=== PATIENT | female | born 1965 | race Caucasian/White ===

== ENCOUNTER → 2021-02-17 11:11 | Outpatient (CLI) | payer OTHER, SELFPAY | PROVIDERS: PCP Internal Medicine; Visit Provider Internal Medicine | DX: Z20.822 Contact with and (suspected) exposure to COVID-19 (principal) | CPT/HCPCS: U0003 ==

== ENCOUNTER → 2023-01-18 11:12 | Outpatient (CLI) | payer OTHER, SELFPAY ==
--- NOTE | 2023-01-18 11:17 | XR_ITS ---
FINAL REPORT CLINICAL HISTORY: Rt LBP x yrs, occasional numbness/tingling radiating down Rt leg. NKT. FINDINGS: LUMBAR SPINE, 5 views FINDINGS: No fracture is identified. Moderate disc space dome with mild endplate spurring is seen at L5-S1. Remaining disc heights are well-maintained. Minimal spurring is noted at L4. Alignment is normal . IMPRESSION: Moderate degenerative disc disease L5-S1 Authenticated and ERN
== END ==
PROVIDERS: PCP Internal Medicine; Visit Provider Internal Medicine
DX: M54.50 Low back pain, unspecified (principal)
CPT/HCPCS: 72110

== ENCOUNTER → 2023-04-22 17:09 | Outpatient (CLI) | payer OTHER, SELFPAY ==
[2023-04-22 17:51] LABS: Basophils # 0.1 K/mm3 (0-0.2); Basophils % 0.9 % (0.1-2.0); Eosinophils # 0.2 K/mm3 (0.0-0.4); Eosinophils % 2.6 % (0.1-12.0); Hematocrit 44.6 % (37.0-47.0); Hemoglobin 14.2 g/dL (12.2-16.2); Lymphocytes # 2.1 K/mm3 (0.7-4.5); Mean Corpuscular HGB Conc 31.9 g/dL (31.8-35.4); Mean Corpuscular Hemoglobin 26.3 pg (27.0-31.2); Mean Corpuscular Volume 82.4 fl (81-99); Mean Platelet Volume 8.7 fl (7.4-10.4); Monocytes # 0.7 K/mm3 (0.1-1.0); Monocytes % 7.9 % (1.7-9.3); Neutrophils # 6.2 K/mm3 (1.8-7.8); Neutrophils % 66.6 % (37.0-80.0); Platelet Count 433 K/mm3 (142-424); Red Blood Count 5.41 M/mm3 (4.20-5.40); Red Cell Distribution Width 13.9 % (11.5-17.5); White Blood Count 9.4 K/mm3 (4.8-10.8)
[2023-04-22 18:06] LABS: Alanine Aminotransferase 35 U/L (12-78); Albumin Level 4.7 g/dl (3.5-5.0); Albumin/Globulin Ratio 1.3 (1.1-1.8); Alkaline Phosphatase 121 U/L (38-126); Anion Gap 15.6 mEq/L (5-15); Aspartate Amino Transferase 32 U/L (14-36); Bilirubin,Total 0.3 mg/dl (0.2-1.3); Blood Urea Nitrogen 19 mg/dl (7-17); Carbon Dioxide 25 mmol/L (22.0-30.0); Chloride 103 mmol/L (98-107); Chol/HDL Ratio 8.5 (1-3.5); Cholesterol 246 mg/dl (140-200); Estimated Glomerular Filt Rate 74 ml/min (>60); GFR (African American) 90 ML/MIN (>60); Globulin 3.6 g/dL (1.3-3.2); Glucose 80 mg/dl (74-100); HDL Cholesterol 29 mg/dl (40-60); Potassium 4.6 mmoL/L (3.5-5.1); Sodium 139 mmol/L (136-145); Total Protein,Serum 8.3 g/dl (6.3-8.2)
[2023-04-22 18:15] LABS: Triglycerides 401 mg/dl (30-150)
[2023-04-22 18:17] LABS: Direct LDL Cholesterol 128.54 mg/dL (100-129)
[2023-04-22 18:36] LABS: Thyroid Stimulating Hormone 3.31 uIU/mL (0.465-4.68)
== END ==
LOC: LAB.DROPOF 17:09
PROVIDERS: PCP Internal Medicine; Visit Provider Internal Medicine
DX: I10 Essential (primary) hypertension (principal); E78.5 Hyperlipidemia, unspecified; D50.9 Iron deficiency anemia, unspecified
CPT/HCPCS: 80053; 80061; 84443; 85025

== ENCOUNTER → 2023-05-24 13:23 | Outpatient (CLI) | payer OTHER, SELFPAY ==
[2023-05-24 15:15] LABS: Anion Gap 13.4 mEq/L (5-15); Blood Urea Nitrogen 19 mg/dl (7-17); Calcium 9.3 mg/dl (8.4-10.2); Carbon Dioxide 30 mmol/L (22.0-30.0); Chloride 103 mmol/L (98-107); Estimated Glomerular Filt Rate 65 ml/min (>60); GFR (African American) 78 ML/MIN (>60); Glucose 96 mg/dl (74-100); Potassium 4.4 mmoL/L (3.5-5.1); Sodium 142 mmol/L (136-145)
== END ==
LOC: LAB.DROPOF 13:23
PROVIDERS: PCP Internal Medicine; Visit Provider Internal Medicine
DX: I10 Essential (primary) hypertension (principal)
CPT/HCPCS: 80048

== ENCOUNTER 2023-12-03 11:05 | Outpatient (CLI) | payer OTHER, SELFPAY ==
--- NOTE | 2023-12-03 11:12 | XR_ITS ---
FINAL REPORT CLINICAL HISTORY: INJURY TO LEFT 5TH TOE WITH PAIN hit pinky toe last week on cabinet COMPARISON: None FINDINGS: Three views of the left toes were obtained. There is a mildly displaced fracture through the midportion of the 5th proximal phalanx. There is no evidence of intra-articular extension. The joint spaces are intact. There is no soft tissue abnormality. IMPRESSION: Fifth proximal phalanx fracture. Reviewed, Interpreted and Dictated by Warren Márquez MD Transcribed by Clari Shah Authenticated and . [facility]
== END 2023-12-03 23:59 ==
LOC: RAD 11:07
PROVIDERS: PCP Internal Medicine; Visit Provider Internal Medicine
DX: M79.675 Pain in left toe(s) (principal)
CPT/HCPCS: 73660

== ENCOUNTER 2024-04-01 16:00 | Outpatient (RCR) | payer OTHER, SELFPAY ==
--- NOTE | 2023-12-16 12:28 | HMH.PTOPEV ---
PT Outpatient Evaluation Rehab PT Outpatient Evaluation Start: 12/16/23 11:01 Freq: Status: Active Protocol: Document 12/16/23 11:03 LUPE (Rec: 12/16/23 12:19 LUPE [id number]) E-signed By Babita Payne, PT Outpatient Therapy Subjective History Subjective History This is an initial evaluation for Isis Mackenzie who presents with referral for LBP with sciatica. The pain has been for most of my life . Lifting weights is what hurts the most. Pt works in [employer] and has to lift /manuver 100-350lb equipment. Pt is currently on ST disability and not working. Pt reports pain is primarily right side of low back and radiates down to her R lateral thigh. Pain does not go past knee. Denies burning or shooting sensation down leg but reports intermittent numbness and aching in leg. Pt as not tried a back brace during heavy lifting tasks. Pt tried PT years ago and a chiropractor last year. Pt did not find lasting relief with chiropractor or PT treatments. Pt denies any recent injury. Pt reports she had an xray but no MRI. Pt uses NSAIDs, ice, muscle relaxers, and biofreeze as pain relievers. Pt reports bending backwards hurts the worst. PMH: Hypertension. No other known significant medical history. Lumbar Xray Impression 01/29: Moderate degenerative disc disease L5-S1 New diagnosis of cancer in past 12 No months? Chief Complaint Pain,Spasms,Paresthesia Symptom Type Ache,Throb Symptoms Relieved By Ice,OTC Meds,Prescription Meds Current Functional Limitations Reaching,Lifting,Sitting, Walking,Bending/Stooping Symptom Description Constant but Variable Level of pain today (0-10) 7 Pain scale - at its best (0-10) 4 Pain scale - at its worst (0-10) 9 Lumbopelvic Eval Posture Thoracic Spine Posture Standing Position Flattened Gait Observation General Gait Pattern Observation Antalgic Gait Palapation tenderness left thoracic spinal tenderness No lumbar spinal tenderness Yes paraspinal tenderness No buttock tenderness No Lumbar/Sacral Palpation Findings Tenderness right lumbar spinal tenderness Yes: 2/4 paraspinal tenderness Yes: 3/4 (taut) buttock tenderness Yes: 1/4 Lumbar/Sacral Palpation Findings Tenderness,Spasm Accessory Movement L2 right,left L3 right,left L4 right,left L5 right,left Range of Motion Lumbar Spine Active Flexion Range of 40 deg, painful Motion (degrees) Lumbar Spine Active Extension Range of 5 deg, painful Motion (degrees) Left Lumbar Spine Lateral Flexion Active 15 deg, spasms Range of Motion (degrees) Right Lumbar Spine Lateral Flexion 15 deg, mild pain Active Range of Motion (degrees) Lumbar Spine ROM Limitations Pain Manual Muscle Test Left Knee Extension Strength Grade 4 Good Knee Flexion Strength Grade 4 Good Hip Flexion Strength Grade 4 Good Hip Abduction Strength Grade 4 Good Hip Adduction Strength Grade 4 Good Hip External Rotation Strength Grade 4 Good Hip Internal Rotation Strength Grade 4 Good Hip Extension Strength Grade 4 Good Right Knee Extension Strength Grade 4 Good Knee Flexion Strength Grade 4 Good Hip Flexion Strength Grade 4- Good- Hip Abduction Strength Grade 4- Good- Hip Adduction Strength Grade 4- Good- Hip External Rotation Strength Grade 4- Good- Hip Internal Rotation Strength Grade 4- Good- Hip Extension Strength Grade 4- Good- Altered Sensation Bilateral LE Dermatome Level L4,L5,S1 Comment Intact to light touch Special Tests Hip Piriformis Test Negative Left,Positive Right Sciatic Nerve Tension Test Negative Left,Positive Right Sacroiliac Joint Compression Test Positive Left,Positive Right Lumbar [place] Distraction Test/Manual Positive Traction Oswestry Index Section 1 Pain Intensity The pain comes and goes and is severe Section 2 Personal Care (Washing,Dresing) increase the pain, but I manage not to change my way of doing it Section 3 Lifting I can only lift very light weights at most Section 4 Walking I have some pain when walking but it does not increase with distance Section 5 Sitting Pain prevents me from sitting for more than one hour Section 6 Standing I cannot stand more than 1/2 hour without increasing pain Section 7 Sleeping I get pain in bed, but it does not prevent me from sleeping well Section 8 Social Life My social life is normal but increases the degree of pain Section 9 Traveling I get extra pain while traveling, but it does not compel me to seek al Section 10 Changing Degreee of Pain My pain is neither getting better or worse Score and Risk Level Oswestry Sc 24 Oswestry Risk Level Moderate Disability Outpatient Therapy Assessment Impairments Problems/Impairmments Palpation Tenderness,Impaired Range of Motion,Impaired Strength,Impaired Endurance, Impaired Walking,Impaired Bending,Impaired Recreational Activities,Impaired Work Activities,Subjective C/O Pain ,Impaired Self Care/Self Management Prognosis Rehab Potential Fair Comment Pt presents with chronic LBP with radiating pain. Pt with impaired and painful lumbar ROM in all planes (extension worst), decreased LE strength, and TTP (2-3/4) and tight R paraspinal muscles. Pt would benefit from skilled outpatient PT to address deficits and decrease pain. Clinical Impression Consistent with Diagnosis Yes Short Term Goals Number of Weeks 3 Decreased Palpation Tenderness Yes: 1/4 TTP R Lumbar paraspinals Increase Range of Motion Yes: Increase lumbar AROM by 5 degrees in all planes. 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 Increase Range of Motion Yes: Lumbar AROM WNL Increase Strength Yes: 5/5 BLE to improve daily function and work tasks. Restore Ability to Lift Objects to Waist Yes: Able to lift 20lb objects Level with proper body mechanics and minimal pain. Improve Oswestry Score Yes: Score reflecting mild disability to decrease self- perceived disability. Decrease Subjective C/O Pain Yes: At worst 5/10 to decrease symptoms severity and improve QOL. Patient to be Ind w/ Advanced HEP Yes Outpatient Therapy Plan of Care Treatment Plan May Include Therapeutic Exercise Including Home Yes Exercise Program Manual Therapy Techniques Yes Neuromuscular Re-education Yes Therapeutic Activities to Return to Yes Previous Functional/Work Level ADL/Self Care Education Yes Mechanical Traction Yes Dry Needling Yes Thermal Modalities Yes Electrical Stimulation Yes Ultrasound/Phonophoresis Yes Iontophoresis Yes Orthotics/Bracing/Splinting Yes Massage Yes Eval/Re-Eval Yes Aquatic Therapy Yes Frequency Times per week 1-2 times Duration Number of Weeks 5-6 weeks Addendums This patient is a candidate for social No or vocational rehab? Patient/Guardian verbally acknowledges Yes understanding of treatment program and consents to further treatment? Patient/Guardian verbally acknowledges Yes understanding of diagnosis, prognosis and goals for treatment? Eval Complexity PT Charges 32773 - Moderate Complexity Shoulder/Elbow Eval Shoulder Objective Measurements Elbow Objective Measurements PHYSICIAN CERTIFICATION: I certify the specified therapy services for Isis Mackenzie are required, authorized, and reviewed every 30 days.
--- NOTE | 2024-03-04 17:23 | HMH.RHREAS ---
Rehab Reassessment Rehab OP Re-assessment Start: 12/16/23 11:01 Freq: Status: Active Protocol: Document 03/04/24 17:17 HANSA (Rec: 03/04/24 17:22 PHORNE [id number]) E-signed By Quincy Keys, PT Oswestry Index Section 1 Pain Intensity The pain is moderate and does not vary much Section 2 Personal Care (Washing,Dresing) my way of washing or dressing even though it causes some pain Section 3 Lifting I can only lift very light weights at most Section 4 Walking I cannot walk more than 1/4 mile without increasing pain Section 5 Sitting Pain prevents me from sitting for more than 1/2 hour Section 6 Standing I cannot stand more than 1/2 hour without increasing pain Section 7 Sleeping Because of my pain, my normal night's sleep is less than 4 hours Section 8 Social Life Pain has no significant effect on my social life apart from limiting Section 9 Traveling Pain restricts me to short necessary journeys under 30 minutes Section 10 Changing Degreee of Pain My pain seems to be getting better, but improvement is slow Score and Risk Level Oswestry Sc 30 Oswestry Risk Level Severe Disability Rehab Re-assessment Subjective Subjective Pt states, I couldn't come all last week because I had a migraine. I moved my stove yesterday and now my back is so sore and I've got pain shooting down into my calf on my R leg. Pain 04/18 this date . Objective Objective Notes Lumbar AROM (in deg): FLEX= 0- 45, EXT= 0-5, R SB= 0-5, L SB= 0-5. Pain: 04/18 currently TTP: 1/4 R side lumbar paraspinals. MMT: B LE grossly 4/5 at the hip and 4+/5 with knee flex/ ext. Assessment Progress Assessment Slower Than Expected Assessment Notes Pt has shown little progress with B LE strength and lumbar AROM since last reassessment. Oswestry score same this date as last reassessment. She continues to have significant pain with all ADLs, household care and lifting activities. She continues to need skilled intervention to return to prior level of function. Patient goals met ST/5 Goals Not Met LT/7 Plan Plan Continue per initial POC. Add gentle extension activities to decrease pain and radicular symptoms. Frequency of Therapy 2 x/wk Duration of therapy 4 wks Time and Billing Re-Eval Time 15 Re-Eval Billing Units 1 PHYSICIAN CERTIFICATION: I certify the specified therapy services for Isis Mackenzie are required, authorized, and reviewed every 30 days.
== END 2024-04-01 16:05 | disposition home or self-care (01) ==
LOC: PT 16:00
PROVIDERS: Visit Provider Internal Medicine
DX: M54.42 Lumbago with sciatica, left side (principal)
CPT/HCPCS: 97010; 97012; 97014; 97035; 97110; 97140; 97163; 97164; 97530; G0283

== ENCOUNTER 2024-04-21 13:05 | Outpatient (CLI) | payer OTHER, SELFPAY ==
--- NOTE | 2024-04-21 13:05 | MR_ITS ---
FINAL REPORT CLINICAL HISTORY: Lumbago with sciatica, failed conservative therapy FINDINGS: Multiplanar MR imaging of the lumbar spine was performed without contrast. On the sagittal T2-weighted images, disc degeneration is seen at multiple levels. The vertebral alignment is normal. Endplate changes are seen at several levels, greatest at L5-S1. A hemangioma is noted in the L3 vertebral body. There is no evidence of fracture. The conus has an unremarkable appearance. L1-2: An annular bulge is present. No significant neural foraminal narrowing is seen. L2-3: An annular bulge is present. There is mild bilateral neural foraminal narrowing. L3-4: An annular bulge is present with bilateral facet arthropathy. There is mild bilateral neural foraminal narrowing. L4-5: An annular bulge is present with vertebral osteophytes and bilateral facet arthropathy. A left foraminal disc protrusion is seen. There is mild right and moderate left neural foraminal narrowing. L5-S1: An annular bulge is present with bilateral facet arthropathy. Mild bilateral neural foraminal narrowing is seen. A 4.2 cm heterogeneous mass is seen at the lower pole of the right kidney most worrisome for neoplasm. IMPRESSION: Multilevel degenerative disc disease and spondylosis with bilateral neural foraminal narrowing as described. Left foraminal L4-5 disc protrusion with moderate left neural foraminal narrowing. 4.2 cm heterogeneous mass lower pole of the right kidney worrisome for neoplasm. Recommend renal mass protocol CT for further evaluation. These findings were discussed with Dr. Rangel at 3:20 PM. Authenticated and ERN
== END 2024-04-21 23:59 | disposition home or self-care (01) ==
LOC: RAD 13:05
PROVIDERS: PCP Internal Medicine; Visit Provider Internal Medicine
DX: M54.41 Lumbago with sciatica, right side (principal)
CPT/HCPCS: 72148

== ENCOUNTER 2024-04-28 05:34 | Emergency (ER) | payer OTHER, SELFPAY ==
[2024-04-28 05:35] VITALS: BP 164/89; PULSE 59; RESP 16; TEMP 36.8; O2SAT 97; BMI 29.9
--- NOTE | 2024-04-28 05:48 | XR_ITS ---
PROCEDURE INFORMATION: Exam: XR Right Elbow Exam date and time: 04/28/2024 5:56 AM Age: 58 years old Clinical indication: Pain; Elbow; Right; Additional info: Fall, ttp and swelling medial epicondyle TECHNIQUE: Imaging protocol: Radiologic exam of the right elbow. Views: 1 or 2 views. COMPARISON: No relevant prior studies available. FINDINGS: Bones/joints: Normal. Soft tissues: Normal. IMPRESSION: No acute findings.
--- NOTE | 2024-04-28 05:49 | ED_ITS ---
Discharge Plan Disposition Patient Disposition: Home, Self-Care Condition: Good Prescriptions Prescriptions: No Action ibuprofen 800 mg tablet 800 mg PO Q8H MDD 3 PRN (Reason: pain) Qty: 90 1RF amlodipine 10 mg tablet 10 mg PO DAILY Qty: 90 1RF Referrals Follow up/Referrals: Jack Rangel MD [Primary Care Provider] - See instructions Activity Restrictions/Add. Instructions Additional Instructions/Restrictions: You were evaluated in the ER and are appropriate for discharge at this time. Take Tylenol, ibuprofen if needed for pain. Follow-up with your primary care physician. Follow-up with the CT scan for your kidney mass as scheduled. Return to the ER with new, worsening, or otherwise concerning symptoms. Clinical Impressions Clinical Impression: Fall, Elbow pain, right Print Language Print Language: Thai Discharge ED Provider: Marilin Reynolds General Adult HPI General Chief complaint: Fall Stated complaint: R elbow pain, fall Time Seen by Provider: 04/28/24 05:40 History of Present Illness HPI narrative: 58-year-old female presents to the ER for complaint of right elbow pain after fall. Patient states she tripped in her kitchen and landed funny, hitting her right elbow and the entire arm going backwards. Patient is complaining of pain and points to the medial epicondyle where she has swelling. She does not have any numbness, tingling, or weakness. She also states she did strike her mouth and chipped a tooth. She does not know the last time she saw dentist. She does not have any oral pain. No bleeding. Patient does not take blood thinners, no loss of consciousness. No other complaints of pain or injury. Related Data Previous Rx's ?Medication ?Instructions ?Recorded amlodipine 10 mg tablet 10 mg PO DAILY #90 tabs 02/20/24 ibuprofen 800 mg tablet 800 mg PO Q8H PRN pain #90 tabs 02/20/24 Allergies Allergy/AdvReac Type Severity Reaction Status Date / Time From FERROUS SULFATE Allergy Unknown Rash Uncoded 04/20/24 11:11 PCN (PENICILLIN) Allergy Unknown Rash Uncoded 04/20/24 11:11 [facility] Disclaimer: The information contained in this section may have been updated after the patient was seen, as this information can be updated by other users. Social History Smoking Status: Never smoker alcohol intake: former current occupational status: employed Travel in the last 8 weeks: Inside the [place] ROS Obtained: Yes All systems reviewed & no additional complaints except as documented Positive ROS per HPI Physical Exam General General appearance: alert and in no apparent distress Head Head exam: atraumatic and normocephalic Eye Eye exam: Present PERRL and EOMI ENT ENT exam: Present mucous membranes moist and other (Extremely poor dentition with multiple caries, significant plaque buildup, gingival inflammation, halitosis. Small chip out of right upper incisor. No pulp exposed. Right upper lip with superficial laceration, does not cross the vermilion border, no gaping, no repair necessary) Neck Neck exam: Present normal inspection and full ROM; Absent tenderness Chest Chest inspection: Present symmetric chest wall rise Respiratory Respiratory exam: Absent respiratory distress or stridor Cardiovascular Cardiovascular exam: Present regular rate and normal rhythm Abdominal Exam Abdominal exam: Present soft; Absent distention or tenderness Extremities Exam Extremities exam: Present full ROM (Passive range of motion of the right elbow full, though painful. Patient is able to actively flex the elbow as well though it causes pain.), tenderness and joint swelling (Tenderness and swelling over the right medial epicondyle. Small hematoma appreciated. Soft. Neurovascularly intact distally.) Neurological Exam Neurological exam: Present alert and oriented X3; Absent motor sensory deficit Psychiatric Psychiatric exam: Present normal affect and normal mood Skin Skin exam: Present warm and dry Medical Decision Making Medical Records Medical records reviewed: Yes I reviewed the patient's medical records. MR Comment: Patient has previously seen Dr. Rangel for low back pain and sciatica, hypertension. She had MRI of the lumbar spine. This demonstrated multilevel degenerative disc disease and spondylosis, neural foraminal narrowing especially at L4-5. Mass at the lower pole of the right kidney concerning for neoplasm at that time. Jero Inquiry Pt receiving controlled substance: No Vital Signs: 04/28/24 05:35 Temperature 98.2 F Temperature Source Oral Pulse Rate [Left] 59 L Respiratory Rate 16 Blood Pressure [Right Arm] 164/89 H Blood Pressure Mean [Right Arm] 114 Blood Pressure Source [Right Arm] Automatic Cuff Blood Pressure Position [Right Arm] Sitting 02 Sat by Pulse Oximetry 97 Oxygen Delivery Method Room Air Orders (Tests/Meds): ED MEDICATIONS Discontinued Medications Generic Name Dose Route Start Last Admin Trade Name Freq PRN Reason Stop Dose Admin Acetaminophen 1,000 mg 04/28/24 05:48 04/28/24 05:57 Acetaminophen 500mg Tab PO 04/28/24 05:49 1,000 mg ONCE ONE Administration Ibuprofen 600 mg 04/28/24 05:48 04/28/24 05:59 Ibuprofen 600 Mg Tablet PO 04/28/24 05:49 600 mg ONCE ONE Administration ORDERS Category Date Time Status Elbow XR right 2 views [XR elbow RT 2V] Stat Exams 04/28/24 05:48 Taken Medical Decision Narrative: In summary, this 58-year-old female presents to the emergency department today with right elbow pain after fall. On initial evaluation patient is hemodynamically stable, afebrile, GCS 15, no neurologic deficit, swelling and tenderness over the medial epicondyle of the right elbow, range of motion full, neurovascularly intact, very mild injury to the upper lip that does not require repair, slight chip of right upper incisor. Differential diagnosis includes but is not limited to fracture, dislocation, soft tissue injury, hematoma. I do not believe patient requires head CT or cervical spine CT considering the mechanism of her fall, no blood thinners, no loss of consciousness, and no headache or neck pain. Per [place] head and C-spine tools, patient is low risk and does not require radiographic imaging at this time. Based on these concerns, I ordered x-ray right upper extremity, pain control. Patient received Tylenol and ibuprofen in the ER. X-ray personally interpreted demonstrates no acute osseous injury. Radiology read pending. Since I had reviewed outpatient previous records and noted the abnormality of the right kidney, I counseled the patient on this and encouraged her to have follow-up as soon as possible with her primary care doctor to be scheduled for repeat imaging. She reports she has a CT scan scheduled for the beginning of May. I believe patient is appropriate for discharge at this time. Radiology read has not yet been finalized, however I do not appreciate acute osseous injury on imaging and there are not findings consistent with osseous injury on exam. Through shared decision making with the patient, I gave her the option of discharging without final radiology read versus staying in the ER until radiology read resulted. I explained to her that she would receive a phone call if there is finding of fracture or dislocation on imaging. She states she is comfortable being discharged at this time since [place] and will be able to easily come back if there is an abnormality on x-ray. I believe this is appropriate at this time. Patient was given instructions on symptomatic management, follow up instructions, and return precautions for the emergency department. Patient indicated understanding and was discharged in stable condition. Critical Care Critical Care Time Critical Care Time: No
[2024-04-28] MEDS: ACETAMINOPHEN 500MG TAB 1000 MG PO (05:57)
[2024-04-28] MEDS: IBUPROFEN 600 MG TABLET PO (05:59)
[2024-04-28 06:23] VITALS: BP 161/85; PULSE 80; RESP 16; TEMP 36.9; O2SAT 96
== END 2024-04-28 06:25 | disposition home or self-care (01) ==
PROVIDERS: Emergency Provider Emergency Medicine; PCP Internal Medicine
DX: M25.521 Pain in right elbow (principal); S01.511A Laceration without foreign body of lip, initial encounter; S02.5XXA Fracture of tooth (traumatic), initial encounter for closed fracture; W01.10XA Fall on same level from slipping, tripping and stumbling with subsequent striking against unspecified object, initial encounter
CPT/HCPCS: 73070; 99283

== ENCOUNTER 2024-05-12 10:18 | Outpatient (CLI) | payer OTHER, SELFPAY ==
--- NOTE | 2024-05-12 10:18 | CT_ITS ---
FINAL REPORT CLINICAL HISTORY: Right renal mass COMPARISON: MRI of the lumbar spine dated 04/21/2024 FINDINGS: CT OF THE ABDOMEN AND PELVIS WITH CONTRAST Axial CT images of the abdomen and pelvis were obtained after the administration of iv contrast. Coronal and sagittal reformatted images were also obtained and reviewed.This study was performed with techniques to keep radiation doses as low as reasonably achievable (ALARA). Individualized dose reduction techniques using automated exposure control or adjustment of mA and/or kV according to the patient's size were employed. Abdomen: The lung bases are clear. The heart is normal in size. The liver has an unremarkable appearance, without evidence of mass or biliary ductal dilatation. The spleen is unremarkable. There is a left adrenal mass, 1.8 cm in size, not typical for an adenoma. This is worrisome for a metastasis versus an atypical adenoma. The pancreas has an unremarkable appearance. There is a heterogeneous enhancing mass in the mid and lower pole of the right kidney, measuring up to 7.3 cm in size, consistent with neoplasm. There is focal enlargement of the right renal vein with a heterogeneous appearance, which measures up to 1.6 cm in size, worrisome for tumor or thrombus. There is presumed contrast mixing in the inferior vena cava without evidence of definite tumor involving the IVC. The aorta is normal in caliber. No abdominal or pelvic adenopathy is seen. No mass or abnormal fluid collection is seen. Pelvis: The appendix is not well-visualized. The urinary bladder is unremarkable. Sigmoid diverticulosis is noted without evidence of acute inflammatory change. There is no evidence of mass or adenopathy. There is no evidence of bowel obstruction. IMPRESSION: Large heterogeneously enhancing mass in the mid and lower pole of the right kidney, consistent with neoplasm. There is also a focus that likely represents renal vein thrombosis, which does not appear to extend into the IVC. There is a left adrenal mass, 1.8 cm, not typical for an adenoma. This most likely represents an atypical adenoma versus metastasis. Reviewed, Interpreted and Dictated by Milton Oreilly III, MD Transcribed by Saadia Washington Authenticated and [facility]
[2024-05-12 10:53] LABS: Blood Urea Nitrogen 29 mg/dl (7-17); Estimated Glomerular Filt Rate 57 ml/min (>60); GFR (African American) 69 ML/MIN (>60)
[2024-05-12] MEDS: IOPAMIDOL-370 (76%);100ML BOTTLE 75 ML IV (12:02)
[2024-05-12] MEDS: SODIUM CHLORIDE 0.9% 10ML SYR (RAD ONLY) 10 ML IV (12:02)
== END 2024-05-12 23:59 | disposition home or self-care (01) ==
LOC: RAD 10:18
PROVIDERS: PCP Internal Medicine; Visit Provider Internal Medicine
DX: N28.89 Other specified disorders of kidney and ureter (principal)
CPT/HCPCS: 36415; 74177; 82565; 84520; Q9967

== ENCOUNTER 2024-05-14 12:57 | Outpatient (CLI) | payer OTHER, SELFPAY ==
--- NOTE | 2024-05-14 13:03 | CA_ITS ---
FINAL REPORT TECHNIQUE: Graded compression, spectral analysis and ultrasound images of the venous system of the right upper extremity were obtained. CLINICAL HISTORY: s/p fall 2 weeks ago-Pain and induration along veins of right upper ext FINDINGS: The jugular vein, subclavian vein, axillary vein, brachial vein, cephalic vein and basilic venous system are fully compressible and demonstrate no evidence of thrombosis. IMPRESSION: No evidence of thrombosis of the venous system of the right upper extremity. Reviewed, Interpreted and Dictated by Milton Oreilly III, MD Transcribed by Shalini Ahumada Authenticated and . [facility]
== END 2024-05-14 23:59 | disposition home or self-care (01) ==
LOC: RT 12:58
PROVIDERS: PCP Internal Medicine; Visit Provider Internal Medicine
DX: I80.8 Phlebitis and thrombophlebitis of other sites (principal)
CPT/HCPCS: 93971

== ENCOUNTER 2024-06-04 08:05 | Outpatient (CLI) | payer OTHER, SELFPAY ==
--- NOTE | 2024-06-04 08:05 | MR_ITS ---
FINAL REPORT CLINICAL HISTORY: Right renal mass, left adrenal mass COMPARISON: 05/12/2024 FINDINGS: Multi planar MR imaging of the abdomen was obtained with and without contrast. There is a heterogeneous enhancing right renal mass which appears confined within the renal capsule measuring 55 mm AP x 44 mm width x 80 mm height. The appearance is most consistent with renal cell carcinoma. No definite renal vein invasion is identified. There is no adenopathy or ascites. No left renal lesion is identified. There is a left adrenal mass measuring 19 mm. This lacks typical MR features for adenoma. Remaining solid organs are unremarkable. The gallbladder is present. IMPRESSION: Dominant lower pole right renal mass most suspicious for renal cell carcinoma without definite renal vein invasion or adenopathy. Left adrenal nodule with differential of atypical adenoma versus metastatic disease. Biopsy would be difficult due to small size. PET evaluation may be considered. Reviewed, Interpreted and Dictated by Jermaine Moreno MD Transcribed by Shalini Ahumada Authenticated and [facility]
[2024-06-04] MEDS: SODIUM CHLORIDE 0.9% 10ML SYR (RAD ONLY) 10 ML IV (09:28)
[2024-06-04] MEDS: GADOTERIDOL INJ 20ML SYRINGE 17 ML IV (09:28)
[2024-06-04] MEDS: 0.9 % SODIUM CHLORIDE 50 ML VIAL 20 ML IV (09:28)
== END 2024-06-04 23:59 | disposition home or self-care (01) ==
LOC: RAD 08:05
PROVIDERS: PCP Internal Medicine; Visit Provider Internal Medicine
DX: N28.89 Other specified disorders of kidney and ureter (principal); E27.8 Other specified disorders of adrenal gland
CPT/HCPCS: 74183; A9576

== ENCOUNTER 2024-06-16 08:52 | Outpatient (CLI) | payer OTHER, SELFPAY ==
--- NOTE | 2024-06-16 09:00 | XR_ITS ---
FINAL REPORT CLINICAL HISTORY: ADRENAL MASS, RENAL MASS COMPARISON: None FINDINGS: Two views of the chest were obtained. The heart size and pulmonary vascularity are within normal limits. The mediastinum is normal. No acute pulmonary abnormality is identified. There is no pneumothorax. The bony thorax is intact. IMPRESSION: No active cardiopulmonary disease. Reviewed, Interpreted and Dictated by Milton Oreilly III, MD Transcribed by Aby Waldrop Authenticated and [facility]
--- NOTE | 2024-06-16 09:24 | ECG_ITS ---
APPROVED REPORT Exam: Resting ECG HR:56 bpm ECG Measurements Heart Rate 56 AXES CO 147 P 44 QRSd 90 QRS -13 QT 411 T 11 QTc 404 Conclusion SINUS BRADYCARDIA LOW QRS VOLTAGE IN PRECORDIAL LEADS [QRS DEFLECTION < 1.0 mV IN CHEST LEADS] LAD MODERATE VOLTAGE CRITERIA FOR LVH, CONSIDER NORMAL VARIANT [MEETS CRITERIA IN ONE OF: R(aVL), S(V1), R(V5), R(V5/V6)+S(V1)] ABNORMAL ECG UNCONFIRMED REPORT Electronically signed by : Wagn Meehan MD 06/17/2024 08:15:53
[2024-06-16 09:47] LABS: Chloride 102 mmol/L (98-107); Potassium 3.9 mmoL/L (3.5-5.1); Sodium 138 mmol/L (136-145)
[2024-06-16 09:50] LABS: Anion Gap 11.9 mEq/L (5-15); Blood Urea Nitrogen 24 mg/dl (7-17); Carbon Dioxide 28 mmol/L (22.0-30.0); Estimated Glomerular Filt Rate 65 ml/min (>60); GFR (African American) 78 ML/MIN (>60)
[2024-06-16 09:51] LABS: Calcium 9.4 mg/dl (8.4-10.2); Glucose 111 mg/dl (74-100)
[2024-06-22 15:10] LABS: Renin Activity, Plasma 0.631 ng/mL/hr (0.167-5.380)
[2024-06-22 16:18] LABS: Metanephrine Plasma < 25.0 pg/mL (0.0-88.0); Normetanephrine Plasma 64.8 pg/mL (0.0-244.0)
== END 2024-06-16 23:59 | disposition home or self-care (01) ==
LOC: RAD 08:54
PROVIDERS: PCP Internal Medicine; Visit Provider Urology
DX: Z01.818 Encounter for other preprocedural examination (principal); E27.8 Other specified disorders of adrenal gland; N28.89 Other specified disorders of kidney and ureter
CPT/HCPCS: 36415; 71046; 80048; 82088; 82533; 83835; 84244; 93005

== ENCOUNTER 2024-06-18 06:26 | Emergency (ER) | payer OTHER, SELFPAY ==
[2024-06-18] VITALS (10 sets, daily range): BP systolic 140–173; BP diastolic 68–88; PULSE 50–82; RESP 16–18; TEMP 36.8; O2SAT 95–99; BMI 31.2
[2024-06-18 07:33] LABS: Basophils # 0.1 K/mm3 (0-0.2); Basophils % 0.9 % (0.1-2.0); Eosinophils # 0.1 K/mm3 (0.0-0.4); Eosinophils % 0.5 % (0.1-12.0); Hematocrit 39.8 % (37.0-47.0); Hemoglobin 13.2 g/dL (12.2-16.2); Lymphocytes # 1.3 K/mm3 (0.7-4.5); Lymphocytes % 11.1 % (10-50); Mean Corpuscular Hemoglobin 27.3 pg (27.0-31.2); Mean Corpuscular Volume 82.5 fl (81-99); Mean Platelet Volume 7.9 fl (7.4-10.4); Monocytes # 0.8 K/mm3 (0.1-1.0); Monocytes % 6.5 % (1.7-9.3); Neutrophils # 9.7 K/mm3 (1.8-7.8); Neutrophils % 80.8 % (37.0-80.0); Platelet Count 374 K/mm3 (142-424); Red Blood Count 4.83 M/mm3 (4.20-5.40); Red Cell Distribution Width 14.4 % (11.5-17.5)
[2024-06-18 07:40] LABS: Albumin Level 4.7 g/dl (3.5-5.0); Chloride 101 mmol/L (98-107); Potassium 4.2 mmoL/L (3.5-5.1); Sodium 135 mmol/L (136-145)
[2024-06-18 07:42] LABS: Blood Urea Nitrogen 22 mg/dl (7-17); Creatinine Clearance Estimated 64 mL/min (50-200); Estimated Glomerular Filt Rate 42 ml/min (>60); GFR (African American) 51 ML/MIN (>60)
[2024-06-18 07:43] LABS: Alanine Aminotransferase 31 U/L (12-78); Albumin/Globulin Ratio 1.3 (1.1-1.8); Alkaline Phosphatase 94 U/L (38-126); Anion Gap 13.2 mEq/L (5-15); Aspartate Amino Transferase 44 U/L (14-36); Bilirubin,Total 0.9 mg/dl (0.2-1.3); Calcium 9.6 mg/dl (8.4-10.2); Carbon Dioxide 25 mmol/L (22.0-30.0); Globulin 3.6 g/dL (1.3-3.2); Glucose 137 mg/dl (74-100); Lipase 109 U/L (23-300); Total Protein,Serum 8.3 g/dl (6.3-8.2)
[2024-06-18 07:46] LABS: Microscopic, Urine URINE MICROSCOPIC (MICROSCOPIC)
--- NOTE | 2024-06-18 07:47 | CT_ITS ---
FINAL REPORT TECHNIQUE: Postcontrast axial images through the abdomen and pelvis were performed. This study was performed with techniques to keep radiation doses as low as reasonably achievable, (ALARA). Individualized dose reduction techniques using automated exposure control or adjustment of mA and/or kV according to the patient's size were employed. CLINICAL HISTORY: acute, sharp R flank pain, history of R RCC. COMPARISON: 05/12/2024 FINDINGS: Abdomen: There is a calcified granuloma in the right lung base. There is mild fatty infiltration of the liver. The spleen is unremarkable. A 1.8 cm left adrenal mass is stable. This is nonspecific and may represent an adenoma versus metastasis. The pancreas is unremarkable. Again noted is a heterogeneous, contrast-enhancing mass in the lower pole of the right kidney measuring up to 7.3 cm in height. This is consistent with a renal neoplasm, likely renal cell carcinoma. There is focal enlargement of the right renal vein with a heterogeneous appearance consistent with tumor thrombus. There is new mild right hydronephrosis and hydroureter of uncertain etiology. No ureteral stone is identified. The aorta is normal in caliber. No free fluid or adenopathy is identified. No findings for mechanical bowel obstruction are identified. Pelvis: The appendix is normal. There is sigmoid diverticulosis. The urinary bladder is unremarkable. No free fluid, free air, abscess or adenopathy is identified. IMPRESSION: New right hydronephrosis and hydroureter of uncertain etiology. No definite ureteral stone identified. Soft tissue mass in the lower pole of the right kidney consistent with renal neoplasm. Right renal vein with tumor thrombus. Adrenal mass which may represent an adenoma or metastasis. Reviewed, Interpreted and Dictated by Miltno Oreilly III, MD Transcribed by Regina Dawn Authenticated and . [facility]
[2024-06-18] MEDS: MORPHINE 4MG/ML SYRINGE 4 MG IV ×2 (07:48→11:45)
[2024-06-18] MEDS: ONDANSETRON 4MG/2ML VIAL 4 MG IV (07:48)
[2024-06-18] MEDS: ACETAMINOPHEN 500MG TAB 1000 MG PO (07:48)
[2024-06-18] MEDS: KETOROLAC 30MG/ML VIAL 15 MG IV (07:48)
[2024-06-18 07:55] LABS: Appearance,Urine CLEAR (Clear); Bilirubin,Urine Negative (Negative); Blood, Urine 3+ (Negative); Color,Urine YELLOW (Yellow); Glucose,Urine (UA) Negative (Negative); Ketones,Urine Negative (Negative); Leukocyte Esterase,Urine Negative (Negative); Nitrate,Urine Negative (Negative); Protein,Urine Negative (Negative); Urobilinogen,Urine 0.2 EU/dl (0.2)
[2024-06-18] MEDS: SODIUM CHLORIDE 0.9% 10ML SYR (RAD ONLY) 10 ML IV (08:03)
[2024-06-18] MEDS: IOPAMIDOL-370 (76%);100ML BOTTLE 75 ML IV (08:03)
--- NOTE | 2024-06-18 08:09 | ED_ITS ---
Discharge Plan Disposition Patient Disposition: Home, Self-Care Prescriptions Prescriptions: New oxycodone 5 mg tablet 5 mg PO Q6H PRN (Reason: pain) Qty: 15 0RF tamsulosin 0.4 mg capsule 0.4 mg PO DAILY Qty: 7 0RF No Action ibuprofen 800 mg tablet 800 mg PO Q8H MDD 3 PRN (Reason: pain) Qty: 90 1RF amlodipine 10 mg tablet 10 mg PO DAILY Qty: 90 1RF methylprednisolone 4 mg tablets,dose pack See Rx Instructions PO PER PKG DIR Qty: 21 0RF Rx Instructions: PO PER PKG DIR Referrals Follow up/Referrals: Jack Rangel MD [Primary Care Provider] - See instructions Activity Restrictions/Add. Instructions Additional Instructions/Restrictions: 800 mg ibuprofen every 8 hours as needed. Oxycodone every 6 hours for breakthrough pain. Tamsulosin each day for the next 7 days to help pass clot. Be sure to stay plenty hydrated, if you are not urinating clear urine be sure to drink more water. If you have any other concerning signs or symptoms as discussed, return to the emergency department for further evaluation. Clinical Impressions Clinical Impression: Hematuria, Obstruction of right ureter, Thrombosis of right renal vein Instructions Patient Instructions: DI for Acute Abdominal Pain Print Language Print Language: Greenlandic Discharge ED Provider: Indio Marvin General Adult HPI General Chief complaint: Abdominal Pain Stated complaint: R side pain, vomiting has kidney cancer Time Seen by Provider: 06/18/24 07:00 Mode of Arrival: Ambulatory Source of Information: Patient Limitations: No Limitations Description of Symptoms (Recalled from ER Triage Doc. by RN): pt awoke to sharp right sided abdomen pain that radiates to the front at midnight the pain eased up and she slept for a few hours then awoke again to the same sharp pain. she tried tums and passing a bowel movement but nothing helped ease the pain. pt reports right sided kidney cancer History of Present Illness HPI narrative: Please note that above description of symptoms, in this electronic medical record under categorization of recalled from ER triage doctor by RN are reflective of an initial nursing assessment, however, is not reflective of my full history and physical exam that was personally taken and clarified. Consequentially, this preceding description of symptoms, which may include the patient's categorized chief complaint in the EMR, do not reflect my personal clinical impression, and the ultimate description of history of present illness and patient stated complaints should be deferred to this section of the note. Unless stated otherwise or congruent with this section of the note, additional signs, symptoms, or incongruence should be interpreted as inaccurate with my clinical impression. Related Data Previous Rx's ?Medication ?Instructions ?Recorded amlodipine 10 mg tablet 10 mg PO DAILY #90 tabs 02/20/24 ibuprofen 800 mg tablet 800 mg PO Q8H PRN pain #90 tabs 02/20/24 methylprednisolone 4 mg tablets in See Rx Instructions PO PER PKG DIR 05/26/24 a dose pack #21 tabs oxycodone 5 mg tablet 5 mg PO Q6H PRN pain #15 tabs 06/18/24 tamsulosin 0.4 mg capsule 0.4 mg PO DAILY #7 caps 06/18/24 Allergies Allergy/AdvReac Type Severity Reaction Status Date / Time From FERROUS SULFATE Allergy Unknown Rash Uncoded 04/20/24 11:11 PCN (PENICILLIN) Allergy Unknown Rash Uncoded 04/20/24 11[facility]11 [facility] Disclaimer: The information contained in this section may have been updated after the patient was seen, as this information can be updated by other users. Social History Smoking Status: Never smoker alcohol intake: former current occupational status: employed Travel in the last 8 weeks: Inside the [place] Other Medical History Have you received the Pneumonia Vaccine: No ROS Obtained: Yes All systems reviewed & no additional complaints except as documented Physical Exam General General appearance: alert and in no apparent distress Head Head exam: atraumatic and normocephalic Eye Eye exam: Present normal appearance, PERRL and EOMI Neck Neck exam: Present normal inspection, full ROM and trachea midline Respiratory Respiratory exam: Present normal lung sounds bilaterally; Absent respiratory distress, wheezes, stridor, accessory muscle use or prolonged expiratory phase Cardiovascular Cardiovascular exam: Present regular rate, normal rhythm and other (Pulses equal symmetric in upper and lower extremities) Abdominal Exam Abdominal exam: Present soft; Absent distention, tenderness, guarding, rebound, rigidity or pulsatile mass Extremities Exam Extremities exam: Absent edema Back Exam Back exam: Absent CVA tenderness (R) or CVA tenderness (L) Neurological Exam Neurological exam: Present alert, oriented X3 and CN II-XII intact; Absent motor sensory deficit Skin Skin exam: Present warm and dry; Absent diaphoresis or erythema Medical Decision Making Medical Records Medical records reviewed: Yes I reviewed the patient's medical records. Screening: Per USPSTF and CDC recommendations, given the prevalence of disease in our region, it is our hospital?s policy to screen for HIV and viral Hepatitis for all patients aged 18 and over and those with ongoing risk factors. Jero Inquiry Pt receiving controlled substance: No Jero was queried for this patient: No Vital Signs: 06/18/24 06:27 06/18/24 06:53 06/18/24 07:00 Temperature 98.3 F Temperature Source Oral Pulse Rate 57 L 55 L Pulse Rate [Right] 69 Respiratory Rate 16 Blood Pressure 152/88 H 158/87 H Blood Pressure [Right Arm] 152/88 H Blood Pressure Mean [Right Arm] 109 02 Sat by Pulse Oximetry 99 97 96 06/18/24 07:31 06/18/24 08:30 06/18/24 09:00 Temperature Temperature Source Pulse Rate 59 L 52 L 54 L Pulse Rate [Right] Respiratory Rate Blood Pressure 173/84 H 147/68 H 141/81 H Blood Pressure [Right Arm] Blood Pressure Mean [Right Arm] 02 Sat by Pulse Oximetry 98 97 97 06/18/24 09:30 06/18/24 10:01 06/18/24 10:30 Temperature Temperature Source Pulse Rate 51 L 50 L 53 L Pulse Rate [Right] Respiratory Rate Blood Pressure 140/72 162/68 H 143/73 H Blood Pressure [Right Arm] Blood Pressure Mean [Right Arm] 02 Sat by Pulse Oximetry 95 96 96 Lab Data Lab Results 06/18/24 06:41: WBC 12.0 H, RBC 4.83, Hgb 13.2, Hct 39.8, MCV 82.5, MCH 27.3, MCHC 33.0, RDW 14.4, Plt Count 374, MPV 7.9, Neut % (Auto) 80.8 H, Lymph % (Auto) 11.1, Tucker % (Auto) 6.5, Eos % (Auto) 0.5, Baso % (Auto) 0.9, Neut # (Auto) 9.7 H, Lymph # (Auto) 1.3, Tucker # (Auto) 0.8, Eos # (Auto) 0.1, Baso # (Auto) 0.1, Sodium 135 L, Potassium 4.2, Chloride 101, Carbon Dioxide 25, Anion Gap 13.2, BUN 22 H, Creatinine 1.30 H D, Estimated Creat Clear 64, Estimated GFR 42 L, Est GFR ( Amer) 51 L D, Glucose 137 H, Lactate 1.0, Calcium 9.6, Total Bilirubin 0.9, AST 44 H, ALT 31, Alkaline Phosphatase 94, Total Protein 8.3 H, Albumin 4.7, Globulin 3.6 H, Albumin/Globulin Ratio 1.3, Lipase 109 06/18/24 07:42: Urine Color Yellow, Urine Appearance Clear, Urine pH 7.0, Ur Specific [place] 1.020, Urine Protein Negative, Urine Glucose (UA) Negative, Urine Ketones Negative, Urine Blood 3+ A, Urine Nitrate Negative, Urine Bilirubin Negative, Urine Urobilinogen 0.2, Ur Leukocyte Esterase Negative, Urine RBC 20-50, Urine WBC None, Ur Squamous Epith Cells Occasional, Urine Bacteria None 06/18/24 06:41 06/18/24 06:41 Orders (Tests/Meds): ED MEDICATIONS Generic Name Dose Route Start Last Admin Trade Name Nancy PRN Reason Stop Dose Admin Sodium Chloride 10 ml 06/18/24 08:02 06/18/24 08:03 Sodium Chloride 0.9% 10ml Syr (Rad Only) IV 07/18/24 08:01 10 ml NEEDED PRN Administration Maintain IV Site Discontinued Medications Generic Name Dose Route Start Last Admin Trade Name Nancy PRN Reason Stop Dose Admin Acetaminophen 1,000 mg 06/18/24 07:22 06/18/24 07:48 Acetaminophen 500mg Tab PO 06/18/24 07:23 1,000 mg ONCE ONE Administration Iopamidol 75 ml 06/18/24 08:02 06/18/24 08:03 Iopamidol-370 (76%);100ml Bottle IV 06/18/24 08:03 75 ml ONCE ONE Administration Ketorolac Tromethamine 15 mg 06/18/24 07:22 06/18/24 07:48 Ketorolac 30mg/Ml Vial IV 06/18/24 07:23 15 mg ONCE ONE Administration Morphine Sulfate 4 mg 06/18/24 07:22 06/18/24 07:48 Morphine 4mg/Ml Syringe IV 06/18/24 07:23 4 mg ONCE ONE Administration Morphine Sulfate 4 mg 06/18/24 11:41 06/18/24 11:45 Morphine 4mg/Ml Syringe IV 06/18/24 11:42 4 mg ONCE ONE Administration Ondansetron HCl 4 mg 06/18/24 07:42 06/18/24 07:48 Ondansetron 4mg/2ml Vial IV 06/18/24 07:43 4 mg ONCE ONE Administration ORDERS Category Date Time Status CT abdomen pelvis w con Stat Cat Scan 06/18/24 07:47 Completed POCUS Point of Care (ER Only) Stat Exams 06/18/24 07:22 Completed CBC w/Auto Diff [Complete Blood Count Auto Diff] Stat Lab 06/18/24 06:41 Completed CMP [Comprehensive Metabolic Panel] Stat Lab 06/18/24 06:41 Completed Lactic Acid Stat Lab 06/18/24 06:41 Completed Lipase Stat Lab 06/18/24 06:41 Completed UA [Urinalysis and Microscopic] Stat Lab 06/18/24 07:42 Completed Medical Decision Narrative: 58-year-old female history of renal cell carcinoma on the right following with [facility] for nephrectomy presenting with right-sided abdominal pain/flank pain. Patient states that it woke her up in the early hours of the morning today, 06/18. Was able to go back to sleep, woke up shortly thereafter and had severe pain. States it is 10 out of 10, intermittently radiates into her abdomen, also intermittently having 10 out of 10 right-sided abdominal pain that radiates into her flank. Unsure if they are related. No gross hematuria, fevers or chills, weight loss, night sweats, blood in her stool, constipation, diarrhea, recent medication changes, trauma to the area, recent travel, or any other relevant history. She has not taken anything for the pain and does not know anything that makes it better or worse.. History was obtained via conversation with patient. On arrival, patient hemodynamically stable, alert, oriented x4, appropriate, GCS 15, moving all extremities spontaneously, pupils equal and reactive to light. Full physical exam performed and significant for 58-year-old female who does not appear to be in any acute distress. Abdomen is soft, nontender, nondistended. She does not have any flank tenderness. No overlying skin changes or bruising. Nontachycardic, normotensive. Cardiopulmonary exam normal. Differential includes progression of disease, perinephric abscess, intralesional hemorrhage, pyelonephritis, nephrolithiasis, renal vein thrombosis, renal artery thrombosis, renal infarct, cholecystitis, PUD, enteritis, gastritis, among others. Patient placed on continuous cardiac monitoring and continuous pulse ox with initial blood pressure 152/88, heart rate 54, saturation 97% on room air. Patient was given Toradol, acetaminophen, morphine 4 mg for symptomatic management and correction of underlying abnormalities. Workup independently interpreted and significant for mild leukocytosis 12.0. Chemistry with mild hypokalemia 135, FRED creatinine 1.3 and BUN 22. On independent interpretation of imaging, patient has large mass which is just about stable from previous imaging. She has dilated, inflamed ureter, no evidence of stone. This is likely due to blood products in the ureter causing obstruction and proximal hydroureteronephrosis. Patient also has appears to have right renal vein thrombus consistent with tumor thrombus with asymmetric enhancement decreased on the right as opposed to the left kidney. See radiology read for full review of final results. Reevaluation, patient states her pain is much better, lying comfortably, tolerating water and ice chips without issue. Results were relayed to her, it was discussed that [facility] we contacted. [facility] was contacted around 9:15 AM. Reviewed with transfer center. Still pending urology consultation. They will call back. Called back around 10:10 AM, Urology still not available to review images, in OR. Without review stated that uro is not concerned, would like to do outpatient follow up with pain control. In setting of new FRED, decreased renal enhancement on CT, and new thrombus with obstructed ureter, I feel patient would be more appropriate for immediate urology evaluation as opposed to outpatient. Transfer center agreeable to continue checking with uro and uro now to call back when they are able to review the images. We called back around 11:43 AM, still waiting on urology. Escalated around 12:15 PM, able to reach urology. Very pleasant, very helpful on the phone, reviewed the images with me over the phone. Agreed with my concerns and stated they would be able to move patient's surgery up likely to 06/24 for right nephrectomy. I feel this is appropriate. This was relayed to patient, she is agreeable to this plan as well. Because patient at baseline without signs or symptoms of clinical decompensation, deemed appropriate for discharge. Results were relayed to patient who voiced understanding and were agreeable to outpatient management and follow up. I discussed my clinical impression with patient and answered all questions. At this time, the evidence for any other entities in the differential is insufficient to warrant any further testing or ED observation. This was explained as well. Advisory was given that persistent or worsening symptoms require further evaluation. I confirmed the understanding of this discussion. Country Printer Apprentice disclaimer Much of this encounter note is an electronic territory outside sales manager spoken language to printed text. Electronic territory outside sales manager of the spoken language may permit errors. Although I have reviewed the note, some errors may still exist. Procedures Limited Ultrasound Indication:: Limited RUQ ultrasound Indication: Abdominal pain and flank pain Identified structures: -Gallbladder -Gallbladder wall -Common bile duct -Liver Findings: Sonographic Wilson sign: Absent Gallstones: Absent Sludge: Absent Pericholecystic fluid: Absent Maximal GB wall thickness (mm) (normal is </= 3mm): Normal Common bile duct width (mm) (normal is </= 6mm): too small to be visualized, presumed normal Gallbladder width (cm) (normal is < 4cm): Normal Gallbladder length (cm) (normal is < 10cm): Normal Impression: Nonvisualization of common bile duct, but otherwise normal right upper quadrant ultrasound without biliary ductal dilation, secondary signs of cholecystitis or sonographic Wilson sign. Images were saved to permanent archive The study was technically adequate CPT 07936-32 This study was performed by me, and I personally interpreted all images/videos. Based on my clinical judgement, these images were adequate and did not necessitate further imaging. Critical Care Critical Care Time Critical Care Time: No
[2024-06-18 08:25] LABS: RBC,Urine 20-50 #/hpf (0-3); Squamous Epithelial Cell,Urine Occasional #/hpf (0-5)
--- NOTE | 2024-06-18 08:54 | PC.NURSE ---
calling [facility] at this time.
--- NOTE | 2024-06-18 09:02 | PC.NURSE ---
[facility] will call back when they get a physician on the line.
--- NOTE | 2024-06-18 09:12 | PC.NURSE ---
dr rajan speaking with [facility]
--- NOTE | 2024-06-18 09:12 | PC.NURSE ---
o/p with at this time.
--- NOTE | 2024-06-18 10:10 | PC.NURSE ---
dr rajan speaking with [facility]
--- NOTE | 2024-06-18 11:43 | PC.NURSE ---
Called [facility] back to get an update, is still reaching out to urology.
--- NOTE | 2024-06-18 13:18 | PC.NURSE ---
Called [facility] back to consult with the [facility] [employer] per DR. Marvin.
--- NOTE | 2024-06-18 13:34 | PC.NURSE ---
DR PRYOR AT BEDSIDE TO UPDATE PT AND FAMILY
== END 2024-06-18 13:58 | disposition home or self-care (01) ==
PROVIDERS: Emergency Provider Emergency Medicine; PCP Internal Medicine
DX: I82.3 Embolism and thrombosis of renal vein (principal); N13.5 Crossing vessel and stricture of ureter without hydronephrosis; R31.9 Hematuria, unspecified; R10.9 Unspecified abdominal pain; R11.11 Vomiting without nausea; Z85.520 Personal history of malignant carcinoid tumor of kidney
CPT/HCPCS: 74177; 80053; 81001; 83605; 83690; 85025; 96374; 96375; 99285; J1885; J2270; J2405; Q9967

== ENCOUNTER 2024-09-07 16:53 | Outpatient (CLI) | payer OTHER, SELFPAY ==
[2024-09-07 17:26] LABS: Chloride 101 mmol/L (98-107); Potassium 4.1 mmoL/L (3.5-5.1); Sodium 135 mmol/L (136-145)
[2024-09-07 17:29] LABS: Anion Gap 13.1 mEq/L (5-15); Blood Urea Nitrogen 33 mg/dl (7-17); Calcium 10.2 mg/dl (8.4-10.2); Carbon Dioxide 25 mmol/L (22.0-30.0); Estimated Glomerular Filt Rate 33 ml/min (>60); GFR (African American) 40 ML/MIN (>60); Glucose 128 mg/dl (74-100)
== END 2024-09-07 23:59 | disposition home or self-care (01) ==
LOC: LAB.DROPOF 16:53
PROVIDERS: PCP Internal Medicine; Visit Provider Internal Medicine
DX: I10 Essential (primary) hypertension (principal)
CPT/HCPCS: 80048

== ENCOUNTER 2024-09-17 08:58 | Outpatient (CLI) | payer OTHER, SELFPAY ==
[2024-09-17 09:05] VITALS: BMI 31.6
[2024-09-17 09:23] LABS: Basophils # 0.1 K/mm3 (0-0.2); Basophils % 0.9 % (0.1-2.0); Eosinophils % 0.7 % (0.1-12.0); Hematocrit 37.9 % (37.0-47.0); Hemoglobin 12.2 g/dL (12.2-16.2); Lymphocytes # 1.4 K/mm3 (0.7-4.5); Lymphocytes % 24.7 % (10-50); Mean Corpuscular HGB Conc 32.2 g/dL (31.8-35.4); Mean Corpuscular Hemoglobin 25.5 pg (27.0-31.2); Mean Corpuscular Volume 79.1 fl (81-99); Mean Platelet Volume 9.1 fl (7.4-10.4); Monocytes # 0.7 K/mm3 (0.1-1.0); Monocytes % 11.9 % (1.7-9.3); Neutrophils # 3.6 K/mm3 (1.8-7.8); Neutrophils % 61.5 % (37.0-80.0); Platelet Count 257 K/mm3 (142-424); Red Blood Count 4.79 M/mm3 (4.20-5.40); Red Cell Distribution Width 14.4 % (11.5-17.5); White Blood Count 5.8 K/mm3 (4.8-10.8)
[2024-09-17 09:36] LABS: Chloride 107 mmol/L (98-107)
[2024-09-17 09:37] LABS: Albumin Level 4.1 g/dl (3.5-5.0); Potassium 3.8 mmoL/L (3.5-5.1); Sodium 138 mmol/L (136-145)
[2024-09-17 09:39] LABS: Blood Urea Nitrogen 24 mg/dl (7-17); Creatinine Clearance Estimated 70 mL/min (50-200); Estimated Glomerular Filt Rate 46 ml/min (>60); GFR (African American) 56 ML/MIN (>60)
[2024-09-17 09:40] LABS: Alanine Aminotransferase 24 U/L (12-78); Albumin/Globulin Ratio 1.4 (1.1-1.8); Alkaline Phosphatase 92 U/L (38-126); Anion Gap 12.8 mEq/L (5-15); Aspartate Amino Transferase 32 U/L (14-36); Bilirubin,Total 0.2 mg/dl (0.2-1.3); Calcium 8.7 mg/dl (8.4-10.2); Carbon Dioxide 22 mmol/L (22.0-30.0); Globulin 2.9 g/dL (1.3-3.2); Glucose 122 mg/dl (74-100)
[2024-09-17] MEDS: PEMBROLIZUMAB 400 MG in 0.9 % SODIUM CHLORIDE 50 ML 132 MG IV (10:03)
[2024-09-17] MEDS: SODIUM CHLORIDE 0.9% 50ML BAG 50 ML IV (10:04)
[2024-09-17 10:10] VITALS: BP 138/68; PULSE 62; RESP 18; O2SAT 96
[2024-09-17 10:11] LABS: Thyroid Stimulating Hormone 4.94 uIU/mL (0.465-4.68)
[2024-09-17 10:55] VITALS: BP 132/72; PULSE 59; RESP 18; O2SAT 97
[2024-09-18 13:09] LABS: Adrenocorticotropic Hormone 35.1 pg/mL (7.2-63.3)
--- NOTE | 2024-09-18 15:19 | DIET.NUTRFU ---
RD consulted for 1st chemo dose, no issues or concerns at this time. She c/o head cold has doctor apt Saturday. Provided contact information for any dietary concerns in the future
--- NOTE | 2024-09-21 13:29 | PC.NURSE ---
called to check on patient post 1st dose of chemo; pt states she is doing well except for chest cold, rn reinforced education about fever precautions and when to seek medical attention;pt states she will see pcp if not feeling better in a day.
== END 2024-09-17 10:55 | disposition home or self-care (01) ==
LOC: INF 08:59
PROVIDERS: PCP Internal Medicine; Visit Provider Internal Medicine Medical Oncology
DX: Z51.11 Encounter for antineoplastic chemotherapy (principal); C64.9 Malignant neoplasm of unspecified kidney, except renal pelvis
CPT/HCPCS: 80053; 82024; 82533; 84443; 85025; 96413; J9271

== ENCOUNTER 2024-10-21 15:10 | Outpatient (CLI) | payer OTHER, SELFPAY ==
[2024-10-21 15:45] LABS: Hematocrit 38.9 % (37.0-47.0); Hemoglobin 12.5 g/dL (12.2-16.2); Mean Corpuscular HGB Conc 32.1 g/dL (31.8-35.4); Mean Corpuscular Hemoglobin 25.5 pg (27.0-31.2); Mean Corpuscular Volume 79.2 fl (81-99); Platelet Count 350 K/mm3 (142-424); Red Blood Count 4.91 M/mm3 (4.20-5.40); Red Cell Distribution Width 14.5 % (11.5-17.5); White Blood Count 7.2 K/mm3 (4.8-10.8)
[2024-10-21 16:15] LABS: Alanine Aminotransferase 30 U/L (12-78); Albumin Level 4.8 g/dl (3.5-5.0); Albumin/Globulin Ratio 1.8 (1.1-1.8); Alkaline Phosphatase 103 U/L (38-126); Anion Gap 15.5 mEq/L (5-15); Aspartate Amino Transferase 29 U/L (14-36); Bilirubin,Total 0.6 mg/dl (0.2-1.3); Blood Urea Nitrogen 24 mg/dl (7-17); Calcium 9.5 mg/dl (8.4-10.2); Carbon Dioxide 27 mmol/L (22.0-30.0); Chloride 100 mmol/L (98-107); Estimated Glomerular Filt Rate 42 ml/min (>60); GFR (African American) 51 ML/MIN (>60); Globulin 2.7 g/dL (1.3-3.2); Glucose 100 mg/dl (74-100); Potassium 4.5 mmoL/L (3.5-5.1); Sodium 138 mmol/L (136-145); Total Protein,Serum 7.5 g/dl (6.3-8.2)
== END 2024-10-21 23:59 | disposition home or self-care (01) ==
LOC: LAB 15:11
PROVIDERS: PCP Internal Medicine; Visit Provider Urology
DX: C64.1 Malignant neoplasm of right kidney, except renal pelvis (principal)
CPT/HCPCS: 36415; 80053; 85027

== ENCOUNTER 2024-10-29 06:52 | Outpatient (CLI) | payer OTHER, SELFPAY ==
--- NOTE | 2024-10-29 06:57 | CT_ITS ---
FINAL REPORT TECHNIQUE: Thin section axial images were obtained from the lung apices through the upper abdomen without contrast. This study was performed with techniques to keep radiation doses as low as reasonably achievable (ALARA). Individualized dose reduction techniques using automated exposure control or adjustment of mA and/or kV according to the patient's size were employed. CLINICAL HISTORY: RENAL CELL CARCINOMA OF RIGHT KIDNEY COMPARISON: 06/18/2024 FINDINGS: There are mildly prominent bilateral axillary lymph nodes. Enlarged right paratracheal lymph nodes are identified. Lymph node on axial image 54 measures 15 mm. AP window lymph node on image 54 measures 17 mm. There is no hilar lymphadenopathy. The heart is mildly enlarged. No pleural or pericardial effusion. There is a 6 mm nodule just above the left hemidiaphragm on image 165. There is a second left lower lobe nodule on image 54 measuring 5 mm. Left upper lobe nodule on image 40 measures 5 mm. Right middle lobe nodule on image 127 measures 6 mm. Limited images of the upper abdomen reveal a high hiatal hernia. There are multiple borderline lymph nodes adjacent to the distal esophagus. Left adrenal nodule is unchanged from recent CT but is not an adenoma by strict criteria. There is no acute osseous abnormality. IMPRESSION: Bilateral subcentimeter pulmonary nodules, metastatic disease not excluded although these could be infectious or inflammatory. Only the left lower lobe nodule at the diaphragm was included on the prior exam and that is stable. Mediastinal lymphadenopathy, could be reactive or neoplastic. Left adrenal nodule is stable but not an adenoma by strict criteria. Reviewed, Interpreted and Dictated by Charity Damon MD Transcribed by Shalini Ahumada Authenticated and [facility]
[2024-10-29 08:09] VITALS: BMI 31.6
[2024-10-29 08:29] LABS: Basophils # 0.1 K/mm3 (0-0.2); Basophils % 1.2 % (0.1-2.0); Eosinophils # 0.3 K/mm3 (0.0-0.4); Eosinophils % 2.8 % (0.1-12.0); Hemoglobin 11.6 g/dL (12.2-16.2); Lymphocytes # 1.7 K/mm3 (0.7-4.5); Lymphocytes % 19.3 % (10-50); Mean Corpuscular HGB Conc 31.4 g/dL (31.8-35.4); Mean Corpuscular Hemoglobin 25.4 pg (27.0-31.2); Mean Platelet Volume 8.8 fl (7.4-10.4); Monocytes # 0.8 K/mm3 (0.1-1.0); Monocytes % 9.3 % (1.7-9.3); Neutrophils % 67.1 % (37.0-80.0); Platelet Count 337 K/mm3 (142-424); Red Blood Count 4.57 M/mm3 (4.20-5.40); Red Cell Distribution Width 14.5 % (11.5-17.5); White Blood Count 8.9 K/mm3 (4.8-10.8)
[2024-10-29 08:35] LABS: Chloride 101 mmol/L (98-107)
[2024-10-29 08:36] LABS: Albumin Level 4.6 g/dl (3.5-5.0); Potassium 4.2 mmoL/L (3.5-5.1); Sodium 138 mmol/L (136-145)
[2024-10-29 08:39] LABS: Alanine Aminotransferase 25 U/L (12-78); Albumin/Globulin Ratio 1.5 (1.1-1.8); Alkaline Phosphatase 93 U/L (38-126); Anion Gap 12.2 mEq/L (5-15); Aspartate Amino Transferase 27 U/L (14-36); Bilirubin,Total 0.5 mg/dl (0.2-1.3); Blood Urea Nitrogen 26 mg/dl (7-17); Carbon Dioxide 29 mmol/L (22.0-30.0); Creatinine Clearance Estimated 64 mL/min (50-200); Estimated Glomerular Filt Rate 42 ml/min (>60); GFR (African American) 51 ML/MIN (>60); Globulin 3.1 g/dL (1.3-3.2); Total Protein,Serum 7.7 g/dl (6.3-8.2)
[2024-10-29 08:40] LABS: Calcium 9.2 mg/dl (8.4-10.2); Glucose 111 mg/dl (74-100)
[2024-10-29 09:10] LABS: Thyroid Stimulating Hormone 2.65 uIU/mL (0.465-4.68)
[2024-10-29] MEDS: PEMBROLIZUMAB 400 MG in 0.9 % SODIUM CHLORIDE 50 ML 132 MG IV (09:32)
[2024-10-29] MEDS: SODIUM CHLORIDE 0.9% 50ML BAG 50 ML IV (09:33)
[2024-10-29 09:39] VITALS: BP 148/79; PULSE 62; RESP 18; TEMP 36.6; O2SAT 97
[2024-10-29 10:22] VITALS: BP 130/71; PULSE 62; RESP 18; O2SAT 97
[2024-10-30 13:14] LABS: Adrenocorticotropic Hormone 18.2 pg/mL (7.2-63.3)
== END 2024-10-29 10:22 | disposition home or self-care (01) ==
PROVIDERS: PCP Internal Medicine; Visit Provider Internal Medicine Medical Oncology
DX: Z51.11 Encounter for antineoplastic chemotherapy (principal); C64.1 Malignant neoplasm of right kidney, except renal pelvis; Z79.899 Other long term (current) drug therapy
CPT/HCPCS: 71250; 80053; 82024; 82533; 84443; 85025; 96413; J9271

== ENCOUNTER 2024-11-04 07:57 | Outpatient (CLI) | payer OTHER, SELFPAY ==
--- NOTE | 2024-11-04 08:01 | MR_ITS ---
FINAL REPORT CLINICAL HISTORY: RENAL CELL CARCINOMA RT KIDNEY. kidney removed jun 2024 COMPARISON: 06/04/2024 FINDINGS: Multiplanar MR imaging of the abdomen was performed without and with contrast. In the interval since the prior MRI of 06/04/2024 a right nephrectomy has been performed. The left kidney reveals no evidence of mass. The inferior vena cava is unremarkable. No retroperitoneal adenopathy is noted. There is a 17 mm enhancing mass in the left adrenal gland, also seen on the prior exam. The signal characteristics are not typical for adenoma. The remaining solid organs are unremarkable in appearance. The gallbladder is normal. There is no evidence of adenopathy or ascites. IMPRESSION: No evidence of local tumor recurrence with interval right nephrectomy since the prior exam. Indeterminate left adrenal nodule, stable in appearance. This may represent an atypical adenoma or metastatic disease. Longer-term follow-up is recommended. No adenopathy or ascites is present. Reviewed, Interpreted and Dictated by Jermaine Moreno MD Transcribed by Saadia Washington Authenticated and [facility]
[2024-11-04] MEDS: SODIUM CHLORIDE 0.9% 10ML SYR (RAD ONLY) 10 ML IV (08:47)
[2024-11-04] MEDS: GADOTERIDOL INJ 20ML SYRINGE 16 ML IV (08:47)
[2024-11-04] MEDS: SODIUM CHLORIDE 0.9% 50ML BAG 20 ML IV (08:47)
== END 2024-11-04 23:59 | disposition home or self-care (01) ==
LOC: RAD 07:58
PROVIDERS: PCP Internal Medicine; Visit Provider Urology
DX: C64.1 Malignant neoplasm of right kidney, except renal pelvis (principal)
CPT/HCPCS: 74183; A9576

== ENCOUNTER 2024-12-10 08:36 | Outpatient (CLI) | payer BC, SELFPAY ==
[2024-12-10 08:38] VITALS: BMI 31.8
[2024-12-10 09:02] LABS: Basophils # 0.1 K/mm3 (0-0.2); Basophils % 1.6 % (0.1-2.0); Eosinophils # 0.2 K/mm3 (0.0-0.4); Eosinophils % 3.4 % (0.1-12.0); Hematocrit 38.3 % (37.0-47.0); Hemoglobin 12.1 g/dL (12.2-16.2); Lymphocytes # 1.6 K/mm3 (0.7-4.5); Lymphocytes % 22.9 % (10-50); Mean Corpuscular HGB Conc 31.6 g/dL (31.8-35.4); Mean Corpuscular Hemoglobin 25.7 pg (27.0-31.2); Mean Corpuscular Volume 81.3 fl (81-99); Mean Platelet Volume 8.8 fl (7.4-10.4); Monocytes # 0.8 K/mm3 (0.1-1.0); Monocytes % 11.8 % (1.7-9.3); Neutrophils # 4.3 K/mm3 (1.8-7.8); Neutrophils % 60.2 % (37.0-80.0); Platelet Count 322 K/mm3 (142-424); Red Blood Count 4.71 M/mm3 (4.20-5.40); White Blood Count 7.1 K/mm3 (4.8-10.8)
[2024-12-10 09:19] LABS: Albumin Level 4.4 g/dl (3.5-5.0); Chloride 104 mmol/L (98-107); Sodium 140 mmol/L (136-145)
[2024-12-10 09:20] LABS: Potassium 4.3 mmoL/L (3.5-5.1)
[2024-12-10 09:22] LABS: Alanine Aminotransferase 22 U/L (12-78); Albumin/Globulin Ratio 1.3 (1.1-1.8); Alkaline Phosphatase 109 U/L (38-126); Anion Gap 12.3 mEq/L (5-15); Aspartate Amino Transferase 26 U/L (14-36); Bilirubin,Total 0.6 mg/dl (0.2-1.3); Blood Urea Nitrogen 24 mg/dl (7-17); Carbon Dioxide 28 mmol/L (22.0-30.0); Creatinine Clearance Estimated 56 mL/min (50-200); Estimated Glomerular Filt Rate 36 ml/min (>60); GFR (African American) 43 ML/MIN (>60); Globulin 3.3 g/dL (1.3-3.2); Total Protein,Serum 7.7 g/dl (6.3-8.2)
[2024-12-10 09:23] LABS: Calcium 9.7 mg/dl (8.4-10.2); Glucose 110 mg/dl (74-100)
[2024-12-10 09:54] LABS: Thyroid Stimulating Hormone 1.56 uIU/mL (0.465-4.68)
[2024-12-10 10:01] VITALS: BP 123/73; PULSE 64; RESP 18; TEMP 36.7; O2SAT 97
[2024-12-10] MEDS: SODIUM CHLORIDE 0.9% 50ML BAG 50 ML IV (10:01)
[2024-12-10] MEDS: PEMBROLIZUMAB 400 MG in 0.9 % SODIUM CHLORIDE 50 ML 132 MG IV (10:01)
[2024-12-10] MEDS: SODIUM CHLORIDE 0.9% 10ML FLUSH SYRINGE 10 ML IV (10:01)
[2024-12-10 10:51] VITALS: BP 119/70; PULSE 65; RESP 20; O2SAT 98
[2024-12-11 14:11] LABS: Adrenocorticotropic Hormone 58.4 pg/mL (7.2-63.3)
== END 2024-12-10 10:51 | disposition home or self-care (01) ==
LOC: INF 08:37
PROVIDERS: PCP Internal Medicine; Visit Provider Internal Medicine Medical Oncology
DX: Z51.11 Encounter for antineoplastic chemotherapy (principal); C64.9 Malignant neoplasm of unspecified kidney, except renal pelvis
CPT/HCPCS: 80053; 82024; 82533; 84443; 85025; 96413; J0780; J9271

== ENCOUNTER 2025-01-26 08:10 | Outpatient (CLI) | payer OTHER, SELFPAY ==
--- NOTE | 2025-01-26 08:30 | MM_ITS ---
PROCEDURE INFORMATION: Exam: MG Bilateral Screening 3D Mammography Exam date and time: 01/26/2025 8:15 AM Age: 59 years old Clinical indication: Screening/baseline screening no family history of breast cancer. TECHNIQUE: Imaging protocol: Bilateral Screening tomosynthesis and 2D mammography including computer-aided detection (CAD) when performed. COMPARISON: No relevant prior studies available. If prior mammograms are provided, I am happy to add an addendum. FINDINGS: MAMMOGRAPHY: Breast composition: There are scattered areas of fibroglandular density. Mass: None. Architectural distortion: None. Calcifications: No suspicious calcifications. Asymmetric density: None. Skin thickening: None. Axillary adenopathy: None. IMPRESSION: No mammographic evidence of malignancy. Annual screening is recommended unless otherwise clinically indicated. ASSESSMENT: BI-RADS 1, Negative.
--- NOTE | 2025-01-26 09:30 | CT_ITS ---
FINAL REPORT CLINICAL HISTORY: renal cancer COMPARISON: 10/29/2024 FINDINGS: CT CHEST without contrast COMPARISON: 10/29/2024. TECHNIQUE: Axial CT without contrast This study was performed with techniques to keep radiation doses as low as reasonably achievable, (ALARA). Individualized dose reduction techniques using automated exposure control or adjustment of mA and/or kV according to the patient's size were employed. FINDINGS: There are at least 4 right lung nodules, the largest in the right middle lobe measuring 4 mm in size, best seen on image #42, stable. There are at least 5 left lung nodules, the largest in the left upper lobe measuring 3 mm in size, best seen on image #18, unchanged. Multifocal mediastinal adenopathy is once again noted. There is a lower right paratracheal node present, measuring up to 14 mm in size, stable. An AP window node measures 13 mm, also stable. No new adenopathy is identified. There is minimal prevascular adenopathy, which is unchanged. A small hiatal hernia is present. An indeterminate left adrenal nodule remains present, measuring 19 mm in size, stable. IMPRESSION: 1. Multiple lung nodules are once again identified, less than 5 mm in size, stable when compared to the prior exam. Favor that these represent noncalcified granulomas. 2. Mediastinal adenopathy is once again noted, without significant change or enlargement since the prior exam, favor benign. This study was performed using automated techniques to achieve radiation exposure as low as reasonably achievable Reviewed, Interpreted and Dictated by Jermaine Moreno MD Transcribed by Saadia Washington Authenticated and [facility]
== END 2025-01-26 23:59 | disposition home or self-care (01) ==
LOC: RAD 08:11
PROVIDERS: PCP Internal Medicine; Visit Provider Internal Medicine Medical Oncology
DX: Z12.31 Encounter for screening mammogram for malignant neoplasm of breast (principal); C64.9 Malignant neoplasm of unspecified kidney, except renal pelvis; R92.323 Mammographic fibroglandular density, bilateral breasts; R91.8 Other nonspecific abnormal finding of lung field; R59.0 Localized enlarged lymph nodes
CPT/HCPCS: 71250; 77063; 77067

== ENCOUNTER 2025-01-27 08:59 | Outpatient (CLI) | payer OTHER, SELFPAY ==
[2025-01-27 09:01] VITALS: BMI 31.9
[2025-01-27 09:35] LABS: Basophils # 0.1 K/mm3 (0-0.2); Basophils % 1.4 % (0.1-2.0); Eosinophils # 0.4 Kmm3 (0.0-0.4); Eosinophils % 5.6 % (0.1-12.0); Hematocrit 38.5 % (37.0-47.0); Immature Granulocytes # 0.02 10^3uL; Immature Granulocytes % 0.3 %; Lymphocytes # 1.7 K/mm3 (0.7-4.5); Lymphocytes % 25.5 % (10-50); Mean Corpuscular HGB Conc 31.2 g/dL (31.8-35.4); Mean Corpuscular Hemoglobin 24.8 pg (27.0-31.2); Mean Corpuscular Volume 79.7 fl (81-99); Monocytes # 0.6 K/mm3 (0.1-1.0); Monocytes % 9.5 % (1.7-9.3); Neutrophils # 3.8 K/mm3 (1.8-7.8); Neutrophils % 57.7 % (37.0-80.0); Nucleated Red Blood Cells # 0 10^3/uL; Nucleated Red Blood Cells % 0 %; Platelet Count 321 K/mm3 (142-424); Red Blood Count 4.83 M/mm3 (4.20-5.40); Red Cell Distribution Width 13.9 % (11.5-17.5); Red Cell Distribution Width-SD 39.7 fL; White Blood Count 6.6 K/mm3 (4.8-10.8)
[2025-01-27 09:42] LABS: Alanine Aminotransferase 24 U/L (12-78); Albumin Level 4.3 g/dl (3.5-5.0); Albumin/Globulin Ratio 1.5 (1.1-1.8); Alkaline Phosphatase 89 U/L (38-126); Aspartate Amino Transferase 31 U/L (14-36); Bilirubin,Total 0.4 mg/dl (0.2-1.3); Blood Urea Nitrogen 23 mg/dl (7-17); Calcium 9.1 mg/dl (8.4-10.2); Carbon Dioxide 26 mmol/L (22.0-30.0); Chloride 106 mmol/L (98-107); Creatinine Clearance Estimated 77 mL/min (50-200); Estimated Glomerular Filt Rate 51 ml/min (>60); GFR (African American) 62 ML/MIN (>60); Globulin 2.8 g/dL (1.3-3.2); Glucose 106 mg/dl (74-100); Sodium 138 mmol/L (136-145); Total Protein,Serum 7.1 g/dl (6.3-8.2)
[2025-01-27 10:12] LABS: Thyroid Stimulating Hormone 0.81 uIU/mL (0.465-4.68)
[2025-01-27] MEDS: PEMBROLIZUMAB 400 MG in 0.9 % SODIUM CHLORIDE 50 ML 132 MG IV (10:19)
[2025-01-27 10:25] VITALS: BP 139/74; PULSE 77; RESP 18; TEMP 36.8; O2SAT 99
[2025-01-27 11:00] VITALS: BP 136/62; PULSE 71
[2025-01-27] MEDS: SODIUM CHLORIDE 0.9% 10ML FLUSH SYRINGE 10 ML IV (11:20)
[2025-01-27] MEDS: SODIUM CHLORIDE 0.9% 50ML BAG 50 ML IV (11:20)
[2025-01-27 15:28] LABS: Iron 53 ug/dL (37-170)
[2025-01-27 15:40] LABS: Total Iron Binding Capacity 395 ug/dL (265-497)
[2025-01-28 19:29] LABS: Adrenocorticotropic Hormone 46.1 pg/mL (7.2-63.3)
== END 2025-01-27 11:10 | disposition home or self-care (01) ==
LOC: INF 09:00
PROVIDERS: PCP Internal Medicine; Visit Provider Internal Medicine Medical Oncology
DX: Z51.11 Encounter for antineoplastic chemotherapy (principal); C64.9 Malignant neoplasm of unspecified kidney, except renal pelvis
CPT/HCPCS: 80053; 82024; 82533; 82728; 83540; 83550; 84443; 85025; 96413; J9271

== ENCOUNTER 2025-03-18 08:18 | Outpatient (CLI) | payer OTHER, SELFPAY ==
--- OUTSIDE RECORDS SUMMARY | 2025-01-29 15:20 | XMS_ITS | Encounter Summary ---
Author Organization [facility] Address [address] [place] [address] Care Team Providers Care Electric Power Machine Operator Name Role Phone Aydee Ziegler MD Unavailable [phone] Jack Rangel MD Primary Care Provider [phone] Reason for Referral * Imaging (Routine) - Pending Review Specialty Diagnoses / Procedures Referred By Thomas cerda Referred To Contact Diagnoses Renal cell carcinoma of right kidney Procedures CT Chest w IV Contrast Aydee Ziegler MD [address] [address] Phone: tel: fax: Referral ID Status Reason Start Date Expiration Date V isits Requested Visits Authorized [id number] Pending Review 01/29/2025 07/31/2026 1 1 * Imaging (Routine) - Pending Review Specialty Diagnoses / Procedures Referred By Thomas cerda Referred To Contact Diagnoses Renal cell carcinoma of right kidney Left adrenal mass (CMS/HCC) Procedures CT Abdomen Pelvis w IV Contrast Aydee Ziegler MD [address] [address] Phone: tel: fax: Referral ID Status Reason Start Date Expiration Date V isits Requested Visits Authorized [id number] Pending Review 01/29/2025 07/31/2026 1 1 Encounter Details Date Type Department Care Team (Latest Contact Info) Description 01/29/2025 3:20 PM EDT Office Visit [facility] Multidisciplinary Oncology Clinic [address] [place] [address] Aydee Ziegler MD [address] [place] [phone] Renal cell carcinoma of right kidney (Primary Dx); Left adrenal mass (CMS/HCC) Social History Tobacco Use Types Packs/Day Years Used Date Smoking Tobacco: Never Smokeless Tobacco: Never Alcohol Use Standard Drinks/Week Comments Never 0 (1 standard drink = 0.6 oz pur e alcohol) PHQ-2 Answer Date Recorded Patient Health Questionnaire-2 Score 0 11/06/2024 Comments No Sex and Gender Information Value Date Recorded Sex Assigned at Not on file Legal Sex Female 10:49 AM EDT Gender Identity Not on file Sexual Orientation Not on file documented as of this encounter Miscellaneous Notes * Progress Notes - Aydee Ziegler MD - 01/29/2025 3:20 PM EDT Urology Note 1. LEFT Adrenal mass (CMS/HCC) - incidentally identified 1.8cm LEFT adrenal mass, 150 HU, concerning for atypical adenoma/malignancy vs functional nodule We will plan for continued surveillance with imaging. She will need blood work to evaluate for a functional adenoma although she was completely asymptomatic. Reviewed recent MRI in which adrenal gland is stable. She has not has adrenal labs. Reviewed recent CT scans which are stable. I'll coordinate with Dr. Cas Cuadra for next abdominal imaging which should be completed in 6 months. 2. 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 Ziegler She presents to review labs and imaging. MRI with no evidence of recurrence in the tumor bed, no adenopathy. Stable contralateral adrenal mass. Started adjuvant pembrolizumab on 09/17/2024 She is tolerating pembro without issues. She had CT scan this week that is stable. Renal function is stable- Cr 1.[address] report or imaging from [facility] from recent CT Chest Abd Pelvis in April 2025 at [facility] Obtain labs from Dr. Windy Cuadra Schedule TH appt at end of april 11. Bilateral subcentimeter pulmonary nodules/ mildly prominent bilateral axillary lymph nodes/ enlarged right paratracheal node - recommend CT chest in 3 months. Will defer ordering to Dr. Cuadra. Assessment and Plan: Isis Mackenzie is a 59 y.o. female with PMHx HTN who presented with a 5.5cm RIGHT renal mass withrenal vein thrombus and LEFT adrenal mass concerning for an atypical adenoma/malignancy. She is doing well status post nephrectomy. She is eating with no issues. She is having regular bowel movements. She reports voiding without difficulty with clear yellow urine. Her son is making her drink more fluids and have a better diet. We discussed her pathology of a pathologic T3 clear cell renal cell carcinoma with Jono grade 3 grading. All margins were negative for malignancy. She is tolerating pembrolizamab but reports a rash and cough. She will obtain a CT chest in [address] Cuadra and follow up with me via telehealth. Will plan for abdominal imaging in 6 months. Discussed adding lotion to skin areas and may use OTC cortisone cream from 3-5 days for areas that itch persistently. No orders of the defined types were placed in this encounter. Chief Complaint: renal mass Referring Provider: Dr. Jack Rangel History of Present Illness: Isis Mackenzie is a 59 y.o. female from [place] [address] who presents for evaluation of a RIGHTrenal mass and LEFT adrenal nodule. Both of these were identified after a work up for back pain which she has had chronically but acutely worsened within the last year. She had an MRI to look at her spine and the renal mass was seen. She then had a CT and subsequent abdominal MRI. She otherwise reports no hematuria or other urinary symptoms. 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 She reports voiding well. Eating well. Normal bowel function. Rash on left forearm has improved. She reports she is tolerating keytruda better. Shortness of breath and itching improved. She had CT scan this week at [facility] by her reports is stable. Up to date with mammogram. She reports Cr is improved to 1.1 most recently. She reports iron deficient anemia. No bowel nor bladder issues. I personally reviewed and updated the patient's past medical, surgical, social, and family histories Pertinent medical history includes HTN. No prior surgeries. The patient's brother has prostate cancer and is a patient of Dr. Alvarez. ECOG 0 Review of Systems: A complete 14 point ROS was performed and reviewed- please see HPI and scanned/signed intake form. Past Medical History: Diagnosis Date Arthritis Hypertension Past Surgical History: Procedure Laterality Date CT SCANOGRAM KIDNEY SURGERY removal Family History Problem Relation Name Age of Onset Throat cancer Father Prostate cancer Brother Allergies Other Asthma Other Diabetes Other Heart Problem Other Seizures Other Sleep apnea Other COPD Other Malig Hyperthermia Neg Hx Blood clots Neg Hx Social History Socioeconomic History Marital status: Legally Spouse name: Not on file Number of children: Not on file Years of education: Not on file Highest education level: Not on file Occupational History Not on file Tobacco Use Smoking status: Never Smokeless tobacco: Never Vaping Use Vaping status: Never Used Substance and Sexual Activity Alcohol use: Never Drug use: Never Sexual activity: Defer control/protection: Post-menopausal Other Topics Concern Not on file Social History Narrative Not on file Social Drivers of Health Financial Resource Strain: Not on file Food Insecurity: Not on file Transportation Needs: Not on file Physical Activity: Not on file Stress: Not on file Social Connections: Not on file Intimate Partner Violence: Not on file Housing Stability: Not on file Current Outpatient Medications Medication Sig Dispense Refill hydroCHLOROthiazide 12.5 MG PO tablet Take 1 tablet (12.5 mg) by mouth daily. ibuprofen 800 MG tablet Take 1 tablet (800 mg) by mouth as needed for moderate pain. methocarbamol (Robaxin) 500 MG tablet Take 1 tablet (500 mg) by mouth 4 (four) times a day for 3 days. 12 tablet 0 oxyCODONE (Roxicodone) 5 MG immediate release tablet Take 1 tablet (5 mg) by mouth every 6 (six) hours if needed for severe pain for up to 5 doses. (Patient not taking: Reported on 11/06/2024) 5 tablet 0 pembrolizumab (Keytruda) 100 MG/4ML injection Infuse into a venous catheter. tamsulosin (Flomax) 0.4 MG 24 hr capsule Take 1 capsule (0.4 mg) by mouth 1 (one) time each day with dinner. For 7 days . Start date 06/18/2024. (Patient not taking: Reported on 11/06/2024) No current facility-administered medications for this visit. Allergies Allergen Reactions Ferrous Sulfate Rash Causes her to break out Penicillins Rash Causes her to break out Physical Exam: GEN: NAD EYES: EOMI Ears/Nose/Mouth/Throat: No obvious drainage per ears or nose CV: well perfused, pulse regular PULM: No audible wheezing or stridor, non-labored respirations ABD: soft, NT, ND, incision well healed. : No CVA tenderness, bladder not palpable MS: normal ROM of UEs Skin: No obvious rashes or open sores Neuro: CN 2-12 grossly intact Psych: Answered questions appropriately with normal affect Heme/Lymph/Immunologic: No obvious bruises or sites of spontaneous bleeding Records Review: I personally reviewed I personally reviewed outside institution and internal imaging studies, imaging reports, labs, and provider notes as noted below and in the assessment and plan. No results found for: PSA CT A&P w/ contrast (05/12/24): 7.3cm right renal mass with thrombus limited to the renal vein. Additional 1.8cm adrenal mass measure 156 Hu. MRI Abdomen: 5.5cm right renal mass with tumor thrombus within the renal vein, 1.8 cm adrenal mass which per the report appears concerning for an atypical adenoma vs malignancy Component Final Diagnosis A. KIDNEY, RIGHT (RADICAL NEPHRECTOMY): -CLEAR CELL RENAL CELL CARCINOMA (8.0 CM), GRADE 3, pT3a -TUMOR INVOLVES THE RENAL VEIN AND RENAL SINUS FAT -ALL MARGINS ARE NEGATIVE FOR CARCINOMA -SEE CHECKLIST FOR ADDITIONAL DETAILS at 1343 Synoptic Checklist KIDNEY: Nephrectomy 8th Edition - Protocol posted: 03/08/2021KIDNEY: NEPHRECTOMY - All Specimens SPECIMEN Procedure Radical nephrectomy Specimen Laterality Right TUMOR Tumor Focality Unifocal Tumor Size Greatest Dimension (Centimeters): 8.0 cm Histologic Type Clear cell renal cell carcinoma Histologic Grade (WHO / ISUP) G3 (nucleoli conspicuous and eosinophilic at 100x magnification) Tumor Extent Extends into renal sinus Extends into major vein (renal vein or its segmental branches, inferior vena cava) Sarcomatoid Features Not identified Rhabdoid Features Not identified Tumor Necrosis Not identified Lymphovascular Invasion Not identified MARGINS Margin Status All margins negative for invasive carcinoma REGIONAL LYMPH NODES Regional Lymph Node Status Not applicable (no regional lymph nodes submitted or found) PATHOLOGIC STAGE CLASSIFICATION (pTNM, AJCC 8th Edition) Reporting of pT, pN, and (when applicable) pM categories is based on information available to the pathologist at the time the report is issued. As per the AJCC (Chapter 1, 8th Ed.) it is the managingphysician???s responsibility to establish the final pathologic stage based upon all pertinent information, including but potentially not limited to this pathology report. Primary Tumor (pT) pT3a Regional Lymph Nodes (pN) pN not assigned (no nodes submitted or found) ADDITIONAL FINDINGS Additional Findings in Nonneoplastic Kidney mass effect . Clinical Information Renal mass [N28.89] Gross Description A. RIGHT KIDNEY AND PARTIAL URETER FOR PERMANENT Received in formalin, labeled with the patient's name and designated right kidney and partial ureter , is a 500 g, 19.0 x 9.5 x 8.0 cm intact kidney with surrounding Gerota's fascia, inked blue. A 6.0 x 0.5 cm ureter with a clear margin is identified. The vascular margins are clear, however telescoping tumor thrombus is present in the renal vein. Bivalving the specimen reveals a 12.5 x 6.2 x 4.2cm kidney that features a lobular, somewhat well-circumscribed, 8.0 x 4.5 x 4.2 cm heterogeneous, red-orange partially degenerating mass primarily in the cortical medullary parenchyma of the upper pole extending into the middle portion of the specimen. The mass is pushing on the capsule and extendsto within 0.3 cm of Gerota's margin, and involves both the renal sinus fat and renal pelvis. No tumor necrosis is seen. An adrenal gland is not present with the specimen. Lymph nodes are not identified. No other masses are seen. Weapons System Instrument Mechanic sections are submitted as follows: A1 ureteral margin A2 vascular margins A3 mass with adjacent capsule and nearest Gerota's margin A4 mass with additional capsule A5-A7 mass with renal sinus A8-A9 nearest renal pelvis A10-A11 additional tumor A12 hilar fat A13 technical sales representatives unremarkable corticalmedullary parenchyma Cold Time: 12h 39m 41s Armando Mishra Note: A resident was involved in the service. I attest I examined the relevant preparations for the specimens and confirmed the diagnosis or interpretation. Resulting Agency Lab Specimen Collected: 06/24/24 19:09 I have personally reviewed the images and agree with the reports under media. LABS from 10/21/2024 Cr - 1.3 WBC- 7.2 Hg 12.5 HCT38.9 Plt 350 LFT- WNL Telehealth Statement Patient Verification Patient identity has been confirmed using name and date of ? Yes Authorizations and Agreements/Telemedicine Consent sent and consent confirmed? Yes Patient Location: Home/Other Patient confirms they are physically located in [place]? Yes If the patient is not physically located in [place], the provider has confirmed with [facility] thatthe provider is authorized to provide services in patient's stated location? N/A Provider Location: [facility] facility Audio and video or audio only? Audio and video Total visit time: 11 minutes documented in this encounter Plan of Treatment Upcoming Encounters Date Type Department Care Team (Late st Contact Info) Description 05/07/2025 3:40 PM EDT Office Visit [facility] Multidisciplinary Oncology Clinic [address] [place] [address] Aydee Ziegler MD [address] [address] Scheduled Orders Name Type Priority Associated Diagnoses Orde r Schedule CT Abdomen Pelvis w IV Contrast Imaging Routine Renal cell carcinoma of right kidney (CMS/HCC) Left adrenal mass (CMS/HCC) Expected: 05/01/2025 (Approximate), Expires: 08/01/2026 CT Chest w IV Contrast Imaging Routine Renal cell carcinoma of right kidney (CMS/HCC) Expected: 05/01/2025 (Approximate), Expires: 08/01/2026 documented as of this encounter Visit Diagnoses Diagnosis Renal cell carcinoma of right kidney- Primary Left adrenal mass (CMS/HCC) Unspecified disorder of adrenal glands documented in this encounter Additional Health Concerns Assessment Noted Time A fall risk assessment has been complete d for the patient 11/06/2024 11:04 AM EST A Body Mass Index follow-up plan has been documented for the patient 06/25/2024 6:46 PM EDT documented as of this encounter Care Teams Electric Power Machine Operator Relationship Specialty Start Date End Date Jack Rangel MD [address] [facility] [address] [place] [address] PCP - General 06/12/24 Aydee Ziegler MD [id number] [place] [id number] Surgeon Urology 06/11/24 documented as of this encounter
[2025-03-18 08:20] VITALS: BMI 30.6
--- OUTSIDE RECORDS SUMMARY | 2025-03-18 08:22 | XMS_ITS | Encounter Summary ---
Author Organization [facility] Address [address] [place] [address] Care Team Providers Care Worm Sorter Name Role Phone Aydee Ziegler MD Unavailable [phone] Jack Rangel MD Primary Care Provider [phone] Encounter Details Date Type Department Care Team (Late st Contact Info) Description 04/28/2024 Orders Only External Location [address] [place] [address] Provider, External Social History Tobacco Use Types Packs/Day Years Used Date Smoking Tobacco: Never Assessed Comments Unknown Sex and Gender Information Value Date Recorded Sex Assigned at Not on file Legal Sex Female 10:49 AM EDT Gender Identity Not on file Sexual Orientation Not on file documented as of this encounter Plan of Treatment Upcoming Encounters Date Type Department Care Team (Late st Contact Info) Description 05/07/2025 3:40 PM EDT Office Visit [facility] Multidisciplinary Oncology Clinic [address] [place] [address] Aydee Ziegler MD [address] [facility] [address] [place] [address] documented as of this encounter Procedures Procedure Name Priority Date/Time Associated Diagnosis Comments XR OUTSIDE IMAGES 04/28/2024 5:56 AM EDT documented in this encounter Results * XR OUTSIDE IMAGES (04/28/2024 5:56 AM EDT) Anatomical Region Laterality Modality Radiographic [place] ging 04/28/2024 5:56 AM EDT us External Provider IMG XR PROCEDURES Final Result documented in this encounter Visit Diagnoses Not on filedocumented in this encounter Care Teams Worm Sorter Relationship Specialty Start Date End Date Jack Rangel MD [address] [facility] [address] [place] [address] PCP - General 06/12/24 Aydee Ziegler MD [address] [facility] [address] [place] [address] Surgeon Urology 06/11/24 documented as of this encounter
--- OUTSIDE RECORDS SUMMARY | 2025-03-18 08:22 | XMS_ITS | Encounter Summary ---
Author Organization [facility] Address [address] [place] [address] Care Team Providers Care Enterer Name Role Phone Aydee Ziegler MD Unavailable [phone] Jack Rangel MD Primary Care Provider [phone] Encounter Details Date Type Department Care Team (Late Contact Info) Description 05/14/2024 Orders Only External Location [address] [place] [phone] Jack Rangel MD [address] [place], [place] [id number] Social History Tobacco Use Types Packs/Day Years [...] Description 05/07/2025 3:40 PM EDT Office Visit [facility] Multidisciplinary Oncology Clinic [address] [place] [phone] Aydee Ziegler MD [address] [facility] [address] [place] [address] documented as of this encounter Procedures Procedure Name Priority Date/Time Associated Diagnosis Comments US OUTSIDE IMAGES 05/14/2024 1:14 PM EDT documented in this encounter Results * US OUTSIDE IMAGES (05/14/2024 1:14 PM EDT) Anatomical Region Laterality Modality Ultrasound 05/14/2024 1:14 PM EDT us Jack Rangel MD IMG US PROCEDURES Final Result documented in this encounter Visit Diagnoses Not on filedocumented in this encounter Care Teams Enterer Relationship Specialty Start Date End Date Jack Rangel MD [address] [place], [place] [address] [address] [place] [id number] PCP - General 06/12/24 Aydee Ziegler MD [id number] [place] [address] Surgeon Urology 06/11/24 documented as of this encounter
--- OUTSIDE RECORDS SUMMARY | 2025-03-18 08:22 | XMS_ITS | Encounter Summary ---
Author Organization [facility] Address [address] [place] [address] Care Team Providers Care Reeling And Tubing Machine Operator Name Role Phone Aydee Ziegler MD Unavailable [phone] Jack Rangel MD Primary Care Provider [phone] Encounter Details Date Type Department Care Team (Late Contact Info) Description 12/03/2023 Orders Only External Location [address] [place] [address] Jack Rangel MD [address] [place], [place] [id number] Social History Tobacco Use Types Packs/Day Years [...] Description 05/07/2025 3:40 PM EDT Office Visit [facility] Multidisciplinary Oncology Clinic [address] [place] [address] Aydee Ziegler MD [address] [facility] [address] [place] [address] documented as of this encounter Procedures Procedure Name Priority Date/Time Associated Diagnosis Comments XR OUTSIDE IMAGES 12/03/2023 11:27 AM EDT documented in this encounter Results * XR OUTSIDE IMAGES (12/03/2023 11:27 AM EDT) Anatomical Region Laterality Modality Radiographic [place] ging 12/03/2023 11:2 7 AM EDT Jack Rangel MD IMG XR PROCEDURES Final Result documented in this encounter Visit Diagnoses Not on filedocumented in this encounter Care Teams Reeling And Tubing Machine Operator Relationship Specialty Start Date End Date Jack Rangel MD [facility] [address] [place] [id number] PCP - General 06/12/24 Aydee Ziegler MD [address] [facility] [address] [place] [address] Surgeon Urology 06/11/24 documented as of this encounter
--- OUTSIDE RECORDS SUMMARY | 2025-03-18 08:22 | XMS_ITS | Encounter Summary ---
Author Organization [facility] Address [address] [place] [address] Care Team Providers Care Metallurgical Engineering Teacher Name Role Phone Aydee Ziegler MD Unavailable [phone] Jack Rangel MD Primary Care Provider [phone] Encounter Details Date Type Department Care Team (Late Contact Info) Description 04/21/2024 Orders Only External Location [address] [place] [address] Jack Rangel MD [address] [place], [place] [id number] Social History Tobacco Use Types Packs/Day Years Used Date Smoking Tobacco: Never Assessed Comments Unknown Sex and Gender Information Value Date Recorded Sex Assigned at Not on file Legal Sex Female 10:49 AM EDT Gender Identity Not on file Sexual Orientation Not on file documented as of this encounter Plan of Treatment Upcoming Encounters Date Type Department Care Team (Late Contact Info) Description 05/07/2025 3:40 PM EDT Office Visit [facility] Multidisciplinary Oncology Clinic [address] [place] [address] Aydee Ziegler MD [address] [facility] [address] [place] [address] documented as of this encounter Procedures Procedure Name Priority Date/Time Associated Diagnosis Comments MR OUTSIDE IMAGES 04/21/2024 1:14 PM EDT documented in this encounter Results * MR transfer of outside films (04/21/2024 1:14 PM EDT) Anatomical Region Laterality Modality Magnetic Resonan ce 04/21/2024 1:14 PM EDT Jack Rangel MD IMG MRI PROCEDURES Final Resul t documented in this encounter Visit Diagnoses Not on filedocumented in this encounter Care Teams Metallurgical Engineering Teacher Relationship Specialty Start Date End Date Jack Rangel MD [facility] [address] [place] [id number] PCP - General 06/12/24 Aydee Ziegler MD [id number] [place] [address] Surgeon Urology 06/11/24 documented as of this encounter
--- OUTSIDE RECORDS SUMMARY | 2025-03-18 08:22 | XMS_ITS | Encounter Summary ---
Author Organization [facility] Address [address] [place] [address] Care Team Providers Care First Assistant Name Role Phone Aydee Ziegler MD Unavailable [phone] Jack Rangel MD Primary Care Provider [phone] Encounter Details Date Type Department Care Team (Latest Contact Info) Description 01/29/2025 Travel Social History Tobacco Use Types Packs/Day Years [...] Description 05/07/2025 3:40 PM EDT Office Visit [facility] Multidisciplinary Oncology Clinic [address] [place] [address] Aydee Ziegler MD [address] [facility] [address] [place] [address] documented as of this encounter Visit Diagnoses Not on filedocumented in this encounter Additional Health Concerns Assessment Noted Time A fall risk assessment has been complete d for the patient 11/06/2024 11:04 AM EST A Body Mass Index follow-up plan has been documented for the patient 06/25/2024 6:46 PM EDT documented as of this encounter Care Teams First Assistant Relationship Specialty Start Date End Date Jack Rangel MD [address] [facility] [address] [place] [address] PCP - General 06/12/24 Aydee Ziegler MD [id number] [place] [address] Surgeon Urology 06/11/24 documented as of this encounter
--- OUTSIDE RECORDS SUMMARY | 2025-03-18 08:22 | XMS_ITS | Encounter Summary ---
Author Organization [facility] Address [address] [place] [address] Care Team Providers Care Semiconductor Packages Leak Tester Name Role Phone Aydee Ziegler MD Unavailable [phone] Jack Rangel MD Primary Care Provider [phone] Encounter Details Date Type Department Care Team (Late Contact Info) Description 01/26/2025 Orders Only External Location [address] [place] [address] Provider, External Social History Tobacco Use Types [...] Description 05/07/2025 3:40 PM EDT Office Visit [facility] Multidisciplinary Oncology Clinic [address] [place] [address] Aydee Ziegler MD [address] [facility] [address] [place] [address] documented as of this encounter Procedures Procedure Name Priority Date/Time Associated Diagnosis Comments CT THORACIC OUTSIDE IMAGES 01/26/2025 8:35 AM EDT documented in this encounter Results * CT THORACIC OUTSIDE IMAGES (01/26/2025 8:35 AM EDT) Anatomical Region Laterality Modality Computed Tomogra phy 01/26/2025 8:35 AM EDT us External Provider IMG CT PROCEDURES Final Result documented in this encounter Visit Diagnoses Not on filedocumented in this encounter Additional Health Concerns Assessment Noted Time A fall risk assessment has been complete d for the patient 11/06/2024 11:04 AM EST A Body Mass Index follow-up plan has been documented for the patient 06/25/2024 6:46 PM EDT documented as of this encounter Care Teams Semiconductor Packages Leak Tester Relationship Specialty Start Date End Date Jack Rangel MD [address] [place] [address] [address] [place] [id number] PCP - General 06/12/24 Aydee Ziegler MD [address] [place] [address] Surgeon Urology 06/11/24 documented as of this encounter
--- OUTSIDE RECORDS SUMMARY | 2025-03-18 08:23 | XMS_ITS | Clinical Summary ---
Author Organization [facility] Address [address] [place] [address] Care Team Providers Care Hydraulic Dredge Operator Name Role Phone Aydee Ziegler MD Unavailable [phone] Jack Rangel MD Primary Care Provider Allergies Active Allergy Reactions Criticality Noted Date Comments Ferrous Sulfate Rash Low 06/12/2024 Causes her to break out Penicillins Rash Low 06/12/2024 Causes her to break out Medications hydroCHLOROthiaz jesu 12.5 MG PO tablet Take 1 tablet (12.5 mg) by mouth daily. 08/30/2024 Active pembrolizumab (Keytruda) 100 MG/4ML injection Infuse into a venous catheter. Active Active Problems Problem Noted Date Diagnosed Date Second hand smoke exposure 06/12/2024 Arthritis 06/12/2024 Hypertension 06/12/2024 Renal mass 06/12/2024 Encounters Date Type Department Care Team Description 01/29/2025 3:20 PM EDT Office Visit [facility] Multidisciplinary Oncology Clinic [address] [place] [address] Aydee Ziegler MD Renal cell carcinoma of right kidney (Primary Dx); Left adrenal mass (CMS/HCC) 01/29/2025 Travel 01/26/2025 Orders Only External Location [address] [place] [address] Provider, External from Last 3 Months Family History Medical History Relation Name Comments Prostate cancer Brother Throat cancer Father Allergies Other Asthma Other COPD Other Diabetes Other Heart Problem Other Seizures Other Sleep apnea Other Blood clots Neg Hx Malig Hyperthermia Neg Hx Relation Name Status Comments Brother Father Other Social History Tobacco Use Types Packs/Day Years Used Date Smoking Tobacco: Never Smokeless Tobacco: Never Tobacco Cessation:Counseling Given: Not Answered Alcohol Use Standard Drinks/Week Comments Never 0 (1 standard drink = 0.6 oz pur e alcohol) PHQ-2 Answer Date Recorded Patient Health Questionnaire-2 Score 0 11/06/2024 Comments No Sex and Gender Information Value Date Recorded Sex Assigned at Not on file Legal Sex Female 10:49 AM EDT Gender Identity Not on file Sexual Orientation Not on file Last Filed Vital Signs Vital Sign Reading Time Taken Comments Blood Pressure 140/79 11/06/2024 11:03 AM EST Pulse 59 11/06/2024 11:03 AM EST Temperature 36.7 C (98 F) 11/06/2024 11:03 AM EST Respiratory Rate 18 07/06/2024 10:5 8 AM EDT Oxygen Saturation 96% 11/06/2024 11: 03 AM EST Inhaled Oxygen Concentration - - Weight 87.5 kg (192 lb 14.4 oz) 025 11:03 AM EST Height 165.1 cm (5' 5 ) 11/06/2024 11:0 3 AM EST Body Mass Index 32.1 11/06/2024 11:03 AM EST Plan of Treatment Upcoming Encounters Date Type Department Care Team (Late st Contact Info) Description 05/07/2025 3:40 PM EDT Office Visit [facility] Multidisciplinary Oncology Clinic [address] [place] [address] Aydee Ziegler MD [address] [place] [address] Health Maintenance Due Date Last Done Comments [facility]-HIV Screening 1966 [facility]-Hepatitis C Screening 1966 [facility]-Infant/Child/Adol SDOH Screenings 1966 [id number] Vaccine (#1) 1971 [facility]- SDOH Screenings 1984 [facility]-Adult SDOH Screenings 1984 [facility]-DTaP,Tdap,and Td Vaccine s (1 - Tdap) 1985 [facility]-Hepatitis B Vaccines (1 of 3 - 19+ 3-dose series) 1985 [facility]-Pneumococcal Vaccine: 50 + Years (1 of 2 - PCV) 1985 [facility]-Zoster Vaccines (1 of 2) 1985 [facility]-Pap Smear 1987 [facility]-Cervical Cancer Screening 1996 [facility]-HPV/Cotest 1996 CT Colonography 2011 Colonoscopy 2011 FIT-DNA 2011 FIT 2011 FOBT 2011 Sigmoidoscopy 2011 [facility]-Colorectal Cancer Screening 2011 [facility]-Breast Cancer Screening 2016 [facility]-Influenza Vaccine (#1) 2025 [facility]-Depression Screening 11/06/2025 11/06/2024 [facility]-Obesity Intervention Completed 06/16/2024 HPV Vaccines Aged Out No longer eligi ble based on patient's age to complete this topic [facility]-HIB Vaccines Aged Out No longer e ligible based on patient's age to complete this topic [facility]-Hepatitis A Vaccines Aged Out No longer eligible based on patient's age to complete this topic [facility]-IPV Vaccines Aged Out No longer e ligible based on patient's age to complete this topic [facility]-Rotavirus Vaccines Aged Out No lo nger eligible based on patient's age to complete this topic Procedures Procedure Name Priority Date/Time Associated Diagnosis Comments CT THORACIC OUTSIDE IMAGES 01/26/2025 8:35 AM EDT from Last 3 Months Results * CT THORACIC OUTSIDE IMAGES (01/26/2025 8:35 AM EDT) Anatomical Region Laterality Modality Computed Tomogra phy 01/26/2025 8:35 AM EDT us External Provider IMG CT PROCEDURES Final Result from Last 3 Months Insurance apt [address] [place] [id number] [employer] Advance Directives * Full Code (Latest Code Status on File) Date Activated Date Inactivated Comments 06/24/2024 8:17 PM 06/25/2024 10:17 PM Question Answer Comments Patient has decision-making capacity? Yes Care Teams Hydraulic Dredge Operator Relationship Specialty Start Date End Date Jack Rangel MD [address] [facility] [address] [place] [address] PCP - General 06/12/24 Aydee Ziegler MD [address] [facility] [address] [place] [address] Surgeon Urology 06/11/24
[2025-03-18 08:38] LABS: Hematocrit 42.5 % (37.0-47.0); Hemoglobin 13.4 g/dL (12.2-16.2); Immature Granulocytes % 0.7 %; Mean Corpuscular HGB Conc 31.5 g/dL (31.8-35.4); Mean Corpuscular Hemoglobin 25.3 pg (27.0-31.2); Mean Corpuscular Volume 80.3 fl (81-99); Nucleated Red Blood Cells % 0 %; Platelet Count 281 K/mm3 (142-424); Red Blood Count 5.29 M/mm3 (4.20-5.40); Red Cell Distribution Width-SD 46.5 fL; White Blood Count 6.9 K/mm3 (4.8-10.8)
[2025-03-18 08:51] LABS: Alanine Aminotransferase 18 U/L (12-78); Albumin Level 4.6 g/dl (3.5-5.0); Albumin/Globulin Ratio 1.3 (1.1-1.8); Alkaline Phosphatase 101 U/L (38-126); Anion Gap 14.0 mEq/L (5-15); Aspartate Amino Transferase 27 U/L (14-36); Bilirubin,Total 0.6 mg/dl (0.2-1.3); Blood Urea Nitrogen 23 mg/dl (7-17); Calcium 9.4 mg/dl (8.4-10.2); Carbon Dioxide 29 mmol/L (22.0-30.0); Chloride 100 mmol/L (98-107); Creatinine Clearance Estimated 62 mL/min (50-200); Creatinine,Serum 1.30 mg/dl (0.52-1.04); Estimated Glomerular Filt Rate 42 ml/min (>60); GFR (African American) 51 ML/MIN (>60); Globulin 3.5 g/dL (1.3-3.2); Glucose 108 mg/dl (74-100); Potassium 4.0 mmoL/L (3.5-5.1); Sodium 139 mmol/L (136-145); Total Protein,Serum 8.1 g/dl (6.3-8.2)
[2025-03-18 09:20] LABS: Thyroid Stimulating Hormone 25.20 uIU/mL (0.465-4.68)
[2025-03-18 09:39] LABS: Iron 94 ug/dL (37-170)
--- NOTE | 2025-03-18 09:50 | PC.NURSE ---
0950-pt to d/c home and come back 03/19/25 to get chemo treatment.
[2025-03-18 14:23] LABS: Total Iron Binding Capacity 362 ug/dL (265-497)
[2025-03-18 14:51] LABS: Ferritin 15.0 ng/ml (11.1-264)
== END 2025-03-18 09:50 | disposition home or self-care (01) ==
LOC: INF 08:20
PROVIDERS: PCP Internal Medicine; Visit Provider Internal Medicine Medical Oncology
DX: C64.9 Malignant neoplasm of unspecified kidney, except renal pelvis (principal)
CPT/HCPCS: 36415; 80053; 82024; 82533; 82728; 83540; 83550; 84443; 85025

== ENCOUNTER 2025-03-19 09:10 | Outpatient (CLI) | payer OTHER, SELFPAY ==
--- OUTSIDE RECORDS SUMMARY | 2025-01-29 15:20 | XMS_ITS | Encounter Summary ---
Author Organization [facility] Address [address] [place] [address] Care Team Providers Care Twx Operator Name Role Phone Aydee Ziegler MD Unavailable Jack Rangel MD Primary Care Provider [phone] Reason for Referral * Imaging (Routine) - Pending Review Specialty Diagnoses / Procedures Referred By Thomas cerda Referred To Contact Diagnoses Renal cell carcinoma of right kidney Procedures CT Chest w IV Contrast Aydee Ziegler MD [address] [address] Phone: tel: fax: Referral ID Status Reason Start Date Expiration Date V isits Requested Visits Authorized [id number] Pending Review 01/29/2025 07/31/2026 1 1 * Imaging (Routine) - Pending Review Specialty Diagnoses / Procedures Referred By Thomas cerda Referred To Contact Diagnoses Renal cell carcinoma of right kidney Left adrenal mass (CMS/HCC) Procedures CT Abdomen Pelvis w IV Contrast Aydee Ziegler MD [address] [address] Phone: tel: fax: Referral ID Status Reason Start Date Expiration Date V isits Requested Visits Authorized [id number] Pending Review 01/29/2025 07/31/2026 1 1 Encounter Details Date Type Department Care Team (Latest Contact Info) Description 01/29/2025 3:20 PM EDT Office Visit [facility] Multidisciplinary Oncology Clinic [address] [place] [address] Aydee Ziegler MD [address] [place] [phone] Renal cell carcinoma of right kidney (Primary [...] should be completed in 6 months. 2. [id number] clear cell renal cell carcinoma with renal [...] 1.[address] report or imaging from [facility] from recent CT Chest Abd Pelvis in April 2025 at [facility] Obtain labs from Dr. Windy Cuadra Schedule [...] Mackenzie is a 59 y.o. female from [place] [address] who presents for evaluation of a RIGHTrenal [...] She had CT scan this week at [facility] by her reports is stable. Up to [...] not identified. No other masses are seen. Couturiere sections are submitted as follows: A1 ureteral margin A2 vascular margins A3 mass with adjacent capsule and nearest Gerota's margin A4 mass with additional capsule A5-A7 mass with renal sinus A8-A9 nearest renal pelvis A10-A11 additional tumor A12 hilar fat A13 market survey representative unremarkable corticalmedullary parenchyma Cold Time: 12h 39m [...] Patient confirms they are physically located in [place]? Yes If the patient is not physically located in [place], the provider has confirmed with [facility] thatthe provider is authorized to provide services in patient's stated location? N/A Provider Location: [facility] facility Audio and video or audio only? Audio and video Total visit time: 11 minutes documented in this encounter Plan of Treatment Upcoming Encounters Date Type Department Care Team (Late st Contact Info) Description 05/07/2025 3:40 PM EDT Office Visit [facility] Multidisciplinary Oncology Clinic [address] [place] [address] Aydee Ziegler MD [address] [address] Scheduled Orders Name Type Priority Associated Diagnoses [...] documented as of this encounter Care Teams Twx Operator Relationship Specialty Start Date End Date Jack Rangel MD [address] [facility] [address] [place] [address] PCP - General 06/12/24 Aydee Ziegler MD [id number] [place] [phone] Surgeon Urology 06/11/24 documented as of this encounter
--- OUTSIDE RECORDS SUMMARY | 2025-03-19 09:13 | XMS_ITS | Encounter Summary ---
Author Organization [facility] Address [address] [place] [address] Care Team Providers Care Code And Test Clerk Name Role Phone Aydee Ziegler MD Unavailable [phone] Jack Rangel MD Primary Care Provider [phone] Encounter Details Date Type Department Care Team (Late st Contact Info) Description 04/28/2024 Orders Only External Location [address] [place] [address] Provider, External Social History Tobacco Use Types [...] Description 05/07/2025 3:40 PM EDT Office Visit [facility] Multidisciplinary Oncology Clinic [address] [place] [address] Aydee Ziegler MD [address] [facility] [address] [place] [address] documented as of this encounter Procedures Procedure [...] on filedocumented in this encounter Care Teams Code And Test Clerk Relationship Specialty Start Date End Date Jack Rangel MD [address] [facility] [address] [place] [address] PCP - General 06/12/24 Aydee Ziegler MD [address] [facility] [address] [place] [address] Surgeon Urology 06/11/24 documented as of this encounter
--- OUTSIDE RECORDS SUMMARY | 2025-03-19 09:13 | XMS_ITS | Encounter Summary ---
Author Organization [facility] Address [address] [place] [address] Care Team Providers Care Health Coach Name Role Phone Aydee Ziegler MD Unavailable [phone] Jack Rangel MD Primary Care Provider [phone] Encounter Details Date Type Department Care Team (Late Contact Info) Description 05/14/2024 Orders Only External Location [address] [place] [address] Jack Rangel MD [address] [place], [place] [id number] Social History Tobacco Use Types Packs/Day Years [...] Description 05/07/2025 3:40 PM EDT Office Visit [facility] Multidisciplinary Oncology Clinic [address] [place] [address] Aydee Ziegler MD [address] [facility] [address] [place] [address] documented as of this encounter [...] on filedocumented in this encounter Care Teams Health Coach Relationship Specialty Start Date End Date Jack Rangel MD [address] [place], [place] [address]E [address] [place] [id number] PCP - General 06/12/24 Aydee Ziegler MD [id number] [place] [address] Surgeon Urology 06/11/24 documented as of this encounter
--- OUTSIDE RECORDS SUMMARY | 2025-03-19 09:13 | XMS_ITS | Encounter Summary ---
Author Organization [facility] Address [address] [place] [address] Care Team Providers Care Tmh Teacher Name Role Phone Aydee Ziegler MD Unavailable [phone] Jack Rangel MD Primary Care Provider [phone] Encounter Details Date Type Department Care Team (Late Contact Info) Description 01/26/2025 Orders Only External Location [address] [place] [address] Provider, External Social History Tobacco Use Types [...] Description 05/07/2025 3:40 PM EDT Office Visit [facility] Multidisciplinary Oncology Clinic [address] [place] [address] Aydee Ziegler MD [address] [facility] [address] [place] [address] documented as of this encounter Procedures Procedure [...] documented as of this encounter Care Teams Tmh Teacher Relationship Specialty Start Date End Date Jack Rangel MD [address] [place] [address] [address] [place] [id number] PCP - General 06/12/24 Aydee Ziegler MD [id number] [place] [address] Surgeon Urology 06/11/24 documented as of this encounter
--- OUTSIDE RECORDS SUMMARY | 2025-03-19 09:13 | XMS_ITS | Encounter Summary ---
Author Organization [facility] Address [address] [place] [address] Care Team Providers Care Digital Color Press Operator Name Role Phone Aydee Ziegler MD Unavailable [phone] Jack Rangel MD Primary Care Provider [phone] Encounter Details Date Type Department Care Team (Late Contact Info) Description 12/03/2023 Orders Only External Location [address] [place] [address] Jack Rangel MD [address] [place], [place] [address] Social History Tobacco Use Types Packs/Day Years [...] Description 05/07/2025 3:40 PM EDT Office Visit [facility] Multidisciplinary Oncology Clinic [address] [place] [address] Aydee Ziegler MD [address] [facility] [address] [place] [address] documented as of this encounter [...] on filedocumented in this encounter Care Teams Digital Color Press Operator Relationship Specialty Start Date End Date Jack Rangel MD [facility] [address] [place] [address] PCP - General 06/12/24 Aydee Ziegler MD [address] [facility] [address] [place] [address] Surgeon Urology 06/11/24 documented as of this encounter
--- OUTSIDE RECORDS SUMMARY | 2025-03-19 09:13 | XMS_ITS | Encounter Summary ---
Author Organization [facility] Address [address] [place] [address] Care Team Providers Care Under Ground Miner Name Role Phone Aydee Ziegler MD Unavailable [phone] Jack Rangel MD Primary Care Provider [phone] Encounter Details Date Type Department Care Team (Late Contact Info) Description 04/21/2024 Orders Only External Location [address] [place] [address] Jack Rangel MD [address] [place], [place] [address] Social History Tobacco Use Types Packs/Day Years [...] 3:40 PM EDT Office Visit [facility] Multidisciplinary Oncology Clinic [address] [place] [address] Aydee Ziegler MD [address] [facility] [address] [place] [address] documented as of this encounter [...] on filedocumented in this encounter Care Teams Under Ground Miner Relationship Specialty Start Date End Date Jack Rangel MD [facility], [facility] [facility] [address] [place] [id number] PCP - General 06/12/24 Aydee Ziegler MD [address] [place] [address] Surgeon Urology 06/11/24 documented as of this encounter
--- OUTSIDE RECORDS SUMMARY | 2025-03-19 09:13 | XMS_ITS | Clinical Summary ---
Author Organization [facility] Address [address] [place] [address] Care Team Providers Care Supervisor Travel Trailer Name Role Phone Aydee Ziegler MD Unavailable [phone] Jack Rangel MD Primary Care Provider [phone] Allergies Active Allergy Reactions Criticality Noted Date [...] Description 01/29/2025 3:20 PM EDT Office Visit [facility] Multidisciplinary Oncology Clinic [address] [place] [address] Aydee Ziegler MD Renal cell carcinoma of right kidney (Primary Dx); Left adrenal mass (CMS/HCC) 01/29/2025 Travel 01/26/2025 Orders Only External Location [address] [place] [address] Provider, External from Last 3 [...] Description 05/07/2025 3:40 PM EDT Office Visit [facility] Multidisciplinary Oncology Clinic [address] [place] [address] Aydee Ziegler MD [address] [place] [address] Health Maintenance Due Date Last Done Comments [facility]-HIV Screening 1966 [facility]-Hepatitis C Screening 1966 [facility]-Infant/Child/Adol SDOH Screenings 1966 [id number] Vaccine (#1) 1971 [facility]- SDOH Screenings 1984 [...] 3 Months Insurance apt [address] [place] [id number] [employer] Advance Directives * Full Code (Latest Code Status on File) Date Activated Date Inactivated Comments 06/24/2024 8:17 PM 06/25/2024 10:17 PM Question Answer Comments Patient has decision-making capacity? Yes Care Teams Supervisor Travel Trailer Relationship Specialty Start Date End Date Jack Rangel MD [address] [facility] [address] [place] [address] PCP - General 06/12/24 Aydee Ziegler MD [address] [facility] [address] [place] [address] Surgeon Urology 06/11/24
--- OUTSIDE RECORDS SUMMARY | 2025-03-19 09:13 | XMS_ITS | Encounter Summary ---
Author Organization [facility] Address [address] [place] [address] Care Team Providers Care Housekeeping Aide Name Role Phone Aydee Ziegler MD Unavailable [phone] Jack Rangel MD Primary Care Provider [phone] Encounter Details Date Type Department Care Team [...] Description 05/07/2025 3:40 PM EDT Office Visit [facility] Multidisciplinary Oncology Clinic [address] [place] [address] Aydee Ziegler MD [address] [facility] [address] [place] [address] documented as of this encounter Visit Diagnoses Not on filedocumented in this encounter Additional Health Concerns Assessment Noted Time A fall risk assessment has been complete d for the patient 11/06/2024 11:04 AM EST A Body Mass Index follow-up plan has been documented for the patient 06/25/2024 6:46 PM EDT documented as of this encounter Care Teams Housekeeping Aide Relationship Specialty Start Date End Date Jack Rangel MD [address] [facility] [address] [place] [address] PCP - General 06/12/24 Aydee Ziegler MD [address] [place] [address] Surgeon Urology 06/11/24 documented as of this encounter
[2025-03-19] MEDS: PEMBROLIZUMAB 400 MG in 0.9 % SODIUM CHLORIDE 50 ML 100 MG IV (09:46)
[2025-03-19 09:50] VITALS: BP 159/89; PULSE 77; RESP 18; TEMP 36.7; O2SAT 99
[2025-03-19 10:30] VITALS: BP 142/75; PULSE 74; O2SAT 98
== END 2025-03-19 10:35 | disposition home or self-care (01) ==
LOC: INF 09:11
PROVIDERS: PCP Internal Medicine; Visit Provider Internal Medicine Medical Oncology
DX: C64.9 Malignant neoplasm of unspecified kidney, except renal pelvis (principal); Z51.11 Encounter for antineoplastic chemotherapy
CPT/HCPCS: 96413; J9271

== ENCOUNTER 2025-04-26 09:39 | Outpatient (CLI) | payer OTHER, SELFPAY ==
--- OUTSIDE RECORDS SUMMARY | 2025-04-26 09:45 | XMS_ITS | Encounter Summary ---
Author Organization [facility] Address [address] [place] [address] Care Team Providers Care Associate Program Manager Name Role Phone Aydee Ziegler MD Unavailable [phone] Jack Rangel MD Primary Care Provider [phone] Encounter Details Date Type Department Care Team (Late Contact Info) Description 05/14/2024 Orders Only External Location [address] [place] [address] Jack Rangel MD [address] [place], [place] [address] Social History Tobacco Use Types Packs/Day Years [...] 05/07/2025 3:40 PM EDT Office Visit [facility] Multidisciplinary Oncology Clinic [address] [place] [address] Aydee Ziegler MD [address] [facility] [address] [place] [address] documented as of this encounter [...] on filedocumented in this encounter Care Teams Associate Program Manager Relationship Specialty Start Date End Date Jack Rangel MD [address] [place], [place] [address]E [address] [place] [id number] PCP - General 06/12/24 Aydee Ziegler MD [id number] [place] [address] Surgeon Urology 06/11/24 documented as of this encounter
--- OUTSIDE RECORDS SUMMARY | 2025-04-26 09:45 | XMS_ITS | Encounter Summary ---
Author Organization [facility] Address [address] [place] [address] Care Team Providers Care Apprentice Embalmer Name Role Phone Aydee Ziegler MD Unavailable [phone] Jack Rangel MD Primary Care Provider [phone] Encounter Details Date Type Department Care Team (Late Contact Info) Description 12/03/2023 Orders Only External Location [address] [place] [address] Jack Rangel MD [address] [place], [place] [id number] Social History Tobacco Use Types Packs/Day Years [...] Description 05/07/2025 3:40 PM EDT Office Visit [facility] Multidisciplinary Oncology Clinic [address] [place] [address] Aydee Ziegler MD [address] [facility] [address] [place] [address] documented as of this encounter [...] on filedocumented in this encounter Care Teams Apprentice Embalmer Relationship Specialty Start Date End Date Jack Rangel MD [facility] [address] [place] [id number] PCP - General 06/12/24 Aydee Ziegler MD [address] [facility] [address] [place] [address] Surgeon Urology 06/11/24 documented as of this encounter
--- OUTSIDE RECORDS SUMMARY | 2025-04-26 09:45 | XMS_ITS | Encounter Summary ---
Author Organization Healthcare Address [address] [place] [address] Care Team Providers Care Stage Driver Name Role Phone Aydee Ziegler MD Unavailable [phone] Jack Rangel MD Primary Care Provider [phone] Encounter Details Date Type Department Care Team (Late st Contact Info) Description 04/08/2025 Telephone [facility] [address] [place] [address] Aydee Ziegler MD [address] [place] [address] Social History Tobacco Use Types Packs/Day Years [...] as of this encounter Miscellaneous Notes * Telephone Encounter - Jeanna Beasley - 04/09/2025 9:53 AM EDT Per Shalini Barnhart, our auth was withdrawn so they can proceed with scan. * Telephone Encounter - Jeanna Beasley - 04/09/2025 8:48 AM EDT RN called [facility] and they stated that patient's CT CAP prior auth is incorrect. They stated that the servicing location is incorrect. It is currently [facility] and needs to be [facility]. RN send email to auth group to fix auth. * Telephone Encounter - Aleah Macias - 04/08/2025 4:24 PM EDT Patient Phone Message Reason for Call: DR. Cuadra's office is calling for the pt's prior auth for her CT scan [phone] Best contact number and optimal time of day to reach caller: Note: Please do not reply to this message. Follow-up communication and further actions as a result of this message need to be communicated with the patient directly, if the patient is not active onMyChart. If the patient is active on MyChart, they will receive notification of the communication/outcome via Bergt. documented in this encounter Plan of Treatment Upcoming Encounters Date Type Department Care Team (Late st Contact Info) Description 05/07/2025 3:40 PM EDT Office Visit [facility] Multidisciplinary Oncology Clinic [address] [place] [address] Aydee Ziegler MD [id number] [place] [address] documented as of this encounter Visit Diagnoses Not on filedocumented in this encounter Additional Health Concerns Assessment Noted Time A fall risk assessment has been complete d for the patient 11/06/2024 11:04 AM EST A Body Mass Index follow-up plan has been documented for the patient 06/25/2024 6:46 PM EDT documented as of this encounter Care Teams Stage Driver Relationship Specialty Start Date End Date Jack Rangel MD [address] [facility] [address] [place] [address] PCP - General 06/12/24 Aydee Ziegler MD [address] [place] [address] Surgeon Urology 06/11/24 documented as of this encounter
--- OUTSIDE RECORDS SUMMARY | 2025-04-26 09:45 | XMS_ITS | Encounter Summary ---
Author Organization [facility] Address [address] [place] [address] Care Team Providers Care Sales Expert Name Role Phone Aydee Ziegler MD Unavailable [phone] Jack Rangel MD Primary Care Provider [phone] Encounter Details Date Type Department Care Team (Late st Contact Info) Description 04/28/2024 Orders Only External Location [address] [place] [address] Provider, External Social History Tobacco Use Types [...] Description 05/07/2025 3:40 PM EDT Office Visit [facility] Multidisciplinary Oncology Clinic [address] [place] [address] Aydee Ziegler MD [address] [facility] [address] [place] [address] documented as of this encounter Procedures Procedure [...] on filedocumented in this encounter Care Teams Sales Expert Relationship Specialty Start Date End Date Jack Rangel MD [address] [facility] [address] [place] [address] PCP - General 06/12/24 Aydee Ziegler MD [address] [facility] [address] [place] [address] Surgeon Urology 06/11/24 documented as of this encounter
--- OUTSIDE RECORDS SUMMARY | 2025-04-26 09:45 | XMS_ITS | Clinical Summary ---
Author Organization [facility] Address [address] [place] [address] Care Team Providers Care Spinner Tender Name Role Phone Aydee Ziegler MD Unavailable [phone] Jack Rangel MD Primary Care Provider [phone] Allergies Active Allergy Reactions Criticality Noted Date [...] Encounters Date Type Department Care Team Description 04/08/2025 Telephone [facility] [address] [place] [address] Aydee Ziegler MD 04/06/2025 Telephone [facility] [address] [place] [address] Aydee Ziegler MD 01/29/2025 3:20 PM EDT Office Visit [facility] [address] [place] [address] Aydee Ziegler MD Renal cell carcinoma of right kidney (Primary Dx); Left adrenal mass (CMS/HCC) 01/29/2025 Travel 01/26/2025 Orders Only External Location [address] [place] [address] Provider, External from Last 3 Months Family [...] Description 05/07/2025 3:40 PM EDT Office Visit [facility] Multidisciplinary Oncology Clinic [address] [place] [address] Aydee Ziegler MD [address] [place] [address] Health Maintenance Due Date Last Done Comments [facility]-HIV Screening 1966 [facility]-Hepatitis C Screening 1966 [facility]-/Child/Adol SDOH Screenings 1966 [id number] Vaccine (#1) 1971 [facility]- SDOH Screenings 1984 [...] Computed Tomogra phy 01/26/2025 8:35 AM EDT External Provider IMG CT PROCEDURES Final Result from Last 3 Months Insurance ANTHEM Advance Directives * Full Code (Latest Code Status on File) Date Activated Date Inactivated Comments 06/24/2024 8:17 PM 06/25/2024 10:17 PM Question Answer Comments Patient has decision-making capacity? Yes Care Teams Spinner Tender Relationship Specialty Start Date End Date Jack Rangel MD [facility] [place] [address] PCP - General 06/12/24 Aydee Ziegler MD [address] [address] Surgeon Urology 06/11/24
--- OUTSIDE RECORDS SUMMARY | 2025-04-26 09:45 | XMS_ITS | Encounter Summary ---
Author Organization [facility] Address [address] [place] [address] Care Team Providers Care Transitions Manager Name Role Phone Aydee Ziegler MD Unavailable [phone] Jack Rangel MD Primary Care Provider [phone] Encounter Details Date Type Department Care Team (Late Contact Info) Description 04/21/2024 Orders Only External Location [address] [place] [address] Jack Rangel MD [address] [place], [place] [id number] Social History Tobacco Use Types Packs/Day Years [...] Description 05/07/2025 3:40 PM EDT Office Visit [facility] Multidisciplinary Oncology Clinic [address] [place] [address] Aydee Ziegler MD [address] [facility] [address] [place] [address] documented as of this encounter [...] on filedocumented in this encounter Care Teams Transitions Manager Relationship Specialty Start Date End Date Jack Rangel MD [facility] [address] [place] [id number] PCP - General 06/12/24 Aydee Ziegler MD [id number] [place] [address] Surgeon Urology 06/11/24 documented as of this encounter
--- OUTSIDE RECORDS SUMMARY | 2025-04-26 09:45 | XMS_ITS | Encounter Summary ---
Author Organization [facility] Address [address] [place] [address] Care Team Providers Care Pin Puller Name Role Phone Aydee Ziegler MD Unavailable [phone] Jack Rangel MD Primary Care Provider [phone] Encounter Details Date Type Department Care Team (Late st Contact Info) Description 04/06/2025 Telephone [facility] [address] [place] [address] Aydee Ziegler MD [address] [place] [address] Social History Tobacco Use Types [...] encounter Miscellaneous Notes * Telephone Encounter - ZohrachelseaEster - 04/06/2025 10:24 AM EDT Patient Phone Message Reason for Call: Calling to clarify referral. PCP listed on referral and Dr Cuadra's information isn't listed so they are unable to schedule patient. Best contact number and optimal time of day to reach caller: [phone] Note: Please do not reply to this message. Follow-up communication and further actions as a result of this message need to be communicated with the patient directly, if the patient is not active onMyChart. If the patient is active on MyChart, they will receive notification of the communication/outcome via MyChart. documented in this encounter Plan of Treatment Upcoming Encounters Date Type Department Care Team (Late st Contact Info) Description 05/07/2025 3:40 PM EDT Office Visit [facility] Multidisciplinary Oncology Clinic [address] [place] [address] Aydee Ziegler MD [address] [address] documented as of this encounter Visit Diagnoses Not on filedocumented in this encounter Additional Health Concerns Assessment Noted Time A fall risk assessment has been complete d for the patient 11/06/2024 11:04 AM EST A Body Mass Index follow-up plan has been documented for the patient 06/25/2024 6:46 PM EDT documented as of this encounter Care Teams Pin Puller Relationship Specialty Start Date End Date Jack Rangel MD [facility] [address] [place] [address] PCP - General 06/12/24 Aydee Ziegler MD [address] [address] Surgeon Urology 06/11/24 documented as of this encounter
--- NOTE | 2025-04-26 09:56 | CT_ITS ---
FINAL REPORT TECHNIQUE: Routine axial images were obtained from the lung apices to below the diaphragm following IV contrast administration. Individualized dose reduction techniques using automated exposure control or adjustment of the mA and/or kV according to the patient size were employed. CLINICAL HISTORY: RENAL CELL CARCINOMA RT KIDNEY COMPARISON: 01/26/2025 FINDINGS: Small bilateral axillary lymph nodes are stable. There are few small mediastinal nodes, not significantly enlarged with the largest measuring 1.3 cm and slightly improved from the previous study. No pleural or pericardial effusion is seen. There is a noncalcified nodule in the periphery of the right middle lobe measuring 5 mm in greatest dimension on image 37 of series 4, stable. There is also a stable noncalcified nodule in the periphery of the left upper lobe measuring 4 mm on image 15 of series 4. Other smaller nodules are also stable. IMPRESSION: Stable bilateral pulmonary nodules as above. Reviewed, Interpreted and Dictated by Warren Márquez MD Transcribed by Clari Shah Authenticated and [facility]
--- NOTE | 2025-04-26 09:56 | CT_ITS ---
FINAL REPORT TECHNIQUE: After the administration of oral and intravenous contrast, axial images were obtained through the abdomen and pelvis by computed tomography. The study was performed with techniques to keep radiation dose as low as reasonably achievable, (ALARA). Individual dose reduction techniques using automated exposure control or adjustment of mA and/or kV according to the patient's size were employed. CLINICAL HISTORY: RENAL CELL CARCINOMA RIGHT KIDNEY COMPARISON: 06/18/2024 FINDINGS: Abdomen: There is moderate fatty infiltration of the liver. The gallbladder is contracted. The spleen and pancreas are unremarkable. There is a nodule in the left adrenal gland measuring 1.8 cm in diameter. The right adrenal gland is unremarkable. The right kidney is surgically absent. The left kidney is normal. Pelvis: There is a moderate amount of stool in the colon. The appendix is unremarkable. The uterus is anteverted. Urinary bladder is normal. IMPRESSION: Postoperative changes from prior right nephrectomy, new since the previous exam. Stable left adrenal mass, indeterminate. Reviewed, Interpreted and Dictated by Warren Márquez MD Transcribed by Clari Shah Authenticated and [facility]
[2025-04-26 09:57] LABS: Hematocrit 40.6 % (37.0-47.0); Hemoglobin 13.2 g/dL (12.2-16.2); Immature Granulocytes % 0.3 %; Mean Corpuscular HGB Conc 32.5 g/dL (31.8-35.4); Mean Corpuscular Hemoglobin 26.8 pg (27.0-31.2); Mean Corpuscular Volume 82.5 fl (81-99); Nucleated Red Blood Cells % 0 %; Platelet Count 303 K/mm3 (142-424); Red Blood Count 4.92 M/mm3 (4.20-5.40); Red Cell Distribution Width-SD 46.6 fL; White Blood Count 7.3 K/mm3 (4.8-10.8)
[2025-04-26 10:06] LABS: Albumin Level 4.6 g/dl (3.5-5.0); Chloride 105 mmol/L (98-107); Sodium 139 mmol/L (136-145)
[2025-04-26 10:07] LABS: Potassium 4.2 mmoL/L (3.5-5.1)
[2025-04-26 10:09] LABS: Alanine Aminotransferase 20 U/L (12-78); Albumin/Globulin Ratio 1.3 (1.1-1.8); Alkaline Phosphatase 97 U/L (38-126); Anion Gap 13.2 mEq/L (5-15); Aspartate Amino Transferase 30 U/L (14-36); Bilirubin,Total 0.7 mg/dl (0.2-1.3); Carbon Dioxide 25 mmol/L (22.0-30.0); Globulin 3.5 g/dL (1.3-3.2); Total Protein,Serum 8.1 g/dl (6.3-8.2)
[2025-04-26 10:10] LABS: Calcium 9.4 mg/dl (8.4-10.2); Glucose 109 mg/dl (74-100)
[2025-04-26 10:14] LABS: Blood Urea Nitrogen 27 mg/dl (7-17); Creatinine,Serum 1.60 mg/dl (0.52-1.04); Estimated Glomerular Filt Rate 33 ml/min (>60); GFR (African American) 40 ML/MIN (>60)
[2025-04-26] MEDS: IOPAMIDOL-370 (76%);100ML BOTTLE 75 ML IV (10:33)
[2025-04-26] MEDS: SODIUM CHLORIDE 0.9% 10ML SYR (RAD ONLY) 10 ML IV (10:33)
[2025-04-26 10:42] LABS: Thyroid Stimulating Hormone 17.30 uIU/mL (0.465-4.68)
== END 2025-04-26 09:50 | disposition home or self-care (01) ==
PROVIDERS: PCP Internal Medicine; Visit Provider Internal Medicine Medical Oncology
DX: C64.1 Malignant neoplasm of right kidney, except renal pelvis (principal); E27.8 Other specified disorders of adrenal gland
CPT/HCPCS: 36415; 71260; 74177; 80053; 82024; 82533; 84443; 85025; Q9967

== ENCOUNTER 2025-04-29 09:59 | Outpatient (CLI) | payer OTHER, SELFPAY ==
[2025-04-29 10:31] VITALS: BP 146/74; PULSE 50; RESP 18; TEMP 36.7; O2SAT 98
[2025-04-29] MEDS: PEMBROLIZUMAB 400 MG in 0.9 % SODIUM CHLORIDE 50 ML 132 MG IV (10:31)
[2025-04-29 11:05] VITALS: BP 150/74; PULSE 52
== END 2025-04-29 11:27 | disposition home or self-care (01) ==
LOC: INF 10:01
PROVIDERS: PCP Internal Medicine; Visit Provider Internal Medicine Medical Oncology
DX: C64.9 Malignant neoplasm of unspecified kidney, except renal pelvis (principal); Z51.11 Encounter for antineoplastic chemotherapy
CPT/HCPCS: 96413; J9271

== ENCOUNTER 2025-05-17 12:47 | Outpatient (CLI) | payer OTHER, SELFPAY ==
--- OUTSIDE RECORDS SUMMARY | 2025-05-07 15:20 | XMS_ITS | Encounter Summary ---
Author Organization Healthcare Address [address] [place] [address] Care Team Providers Care Steam Box Hand Name Role Phone Aydee Ziegler MD Unavailable [phone] Jack Rangel MD Primary Care Provider [phone] Reason for Visit * Reason Comments Follow-up Renal cell carcinoma of right kidney Encounter Details Date Type Department Care Team (Latest Contact Info) Description 05/07/2025 3:20 PM EDT Office Visit [facility] Multidisciplinary Oncology Clinic [address] [place] [address] Aydee Ziegler MD [address] [facility] [address] [place] [address] Renal cell carcinoma of right kidney (Primary [...] Progress Notes - Aydee Ziegler MD - 05/07/2025 3:20 PM EDT Images from the original note were not included. Urology Note 1. LEFT Adrenal mass (CMS/HCC) [...] should be completed in 6 months. 2. [id number] clear cell renal cell carcinoma with renal [...] 1.[address] report or imaging from [facility] from recent CT Chest Abd Pelvis in April 2025 at [facility] Obtain labs from Dr. Windy Cuadra Schedule TH appt at end of april 3. Bilateral subcentimeter pulmonary nodules/ mildly prominent bilateral axillary lymph nodes/ enlarged right paratracheal node - Will defer imaging ordering to Dr. Cuadra. Assessment and Plan: [...] plan for abdominal imaging in 6 months. Shereports some fatigue. Discussed adding lotion to skin areas and may use OTC cortisone cream from 3-5 days for areas that itch persistently. Getting MRI brain for foggy brain 05/17/2025- get reports Obtain labs Obtain notes from Dr. Venecia Aldana q 6 weeks Follow up in Sep 2025 No orders of the defined types were placed in this encounter. Chief Complaint: renal mass Referring Provider: Dr. Jack Rangel History of Present Illness: Isis Mackenzie is a 59 y.o. female from [place] [address] who presents for evaluation of a RIGHTrenal [...] She had CT scan this week at [facility] by her reports is stable. Up to date with mammogram. She reports Cr is improved to 1.1 most recently. She reports iron deficient anemia. No bowel nor bladder issues. I personally reviewed and updated the patient's past medical, surgical, social, and family histories Pertinent medical history includes HTN. No prior surgeries. The patient's brother has prostate cancer and is a patient of Dr. Ziegler'olivier. ECOG 0 Review of Systems: A complete [...] use: Never Drug use: Never Sexual activity: Not Currently Partners: Male control/protection: Post-menopausal Other Topics Concern Not on [...] 1 tablet (12.5 mg) by mouth daily. pembrolizumab (Keytruda) 100 MG/4ML injection Infuse into a venous catheter. No current facility-administered medications for this visit. [...] not identified. No other masses are seen. General Claims Agent sections are submitted as follows: A1 ureteral margin A2 vascular margins A3 mass with adjacent capsule and nearest Gerota's margin A4 mass with additional capsule A5-A7 mass with renal sinus A8-A9 nearest renal pelvis A10-A11 additional tumor A12 hilar fat A13 agency sales representative unremarkable corticalmedullary parenchyma Cold Time: 12h [...] Patient confirms they are physically located in [place]? Yes If the patient is not physically located in [place], the provider has confirmed with [facility] thatthe provider is authorized to provide services in patient's stated location? N/A Provider Location: [facility] facility Audio and video or audio only? Audio and video Total visit time: 14 minutes documented in this encounter Plan of Treatment Upcoming Encounters Date Type Department Care Team (Late st Contact Info) Description 09/17/2025 3:20 PM EST Office Visit [facility] Multidisciplinary Oncology Clinic [address] [place] [address] Aydee Ziegler MD [address] [facility] [address] [place] [address] documented as of this encounter Visit Diagnoses Diagnosis Renal cell carcinoma of right kidney- Primary Left adrenal mass (CMS/HCC) Unspecified disorder of adrenal glands documented in this encounter Additional Health Concerns Assessment Noted Time A fall risk assessment has been complete d for the patient 11/06/2024 11:04 AM EST A Body Mass Index follow-up plan has been documented for the patient 05/17/2025 8:42 AM EDT documented as of this encounter Care Teams Steam Box Hand Relationship Specialty Start Date End Date Jack Rangel MD [address] [facility] [address] [place] [address] PCP - General 06/12/24 Aydee Ziegler MD [address] [facility] [address] [place] [address] Surgeon Urology 06/11/24 documented as of this encounter
--- OUTSIDE RECORDS SUMMARY | 2025-05-17 12:50 | XMS_ITS | Encounter Summary ---
Author Organization [facility] Address [address] [place] [address] Care Team Providers Care Wood Repatcher Name Role Phone Aydee Ziegler MD Unavailable [phone] Jack Rangel MD Primary Care Provider [phone] Encounter Details Date Type Department Care Team (Late Contact Info) Description 05/14/2024 Orders Only External Location [address] [place] [address] Jack Rangel MD [address] [place], [place] [id number] Social History Tobacco Use Types Packs/Day Years [...] 3:20 PM EST Office Visit [facility] Multidisciplinary Oncology Clinic [address] [place] [address] Aydee Ziegler MD [address] [facility] [address] [place] [address] documented as of this encounter [...] on filedocumented in this encounter Care Teams Wood Repatcher Relationship Specialty Start Date End Date Jack Rangel MD [address] [place] [address] [address] [place] [address] PCP - General 06/12/24 Aydee Ziegler MD [id number] [place] [address] Surgeon Urology 06/11/24 documented as of this encounter
--- OUTSIDE RECORDS SUMMARY | 2025-05-17 12:50 | XMS_ITS | Clinical Summary ---
Author Organization [facility] Address [address] [place] [address] Care Team Providers Care Fitter'S Assistant Name Role Phone Aydee Ziegler MD Unavailable [phone] Jack Rangel MD Primary Care Provider [phone] Allergies Active Allergy Reactions Criticality Noted Date [...] Encounters Date Type Department Care Team Description 05/07/2025 3:20 PM EDT Office Visit [facility] [address] [place] [address] Aydee Ziegler MD Renal cell carcinoma of right kidney (Primary Dx); Left adrenal mass (CMS/HCC) 05/07/2025 Travel 04/26/2025 Orders Only External Location [address] [place] [address] Provider, External 04/26/2025 Orders Only External Location [address] [place] [address] Provider, External 04/08/2025 Telephone [facility] [address] [place] [address] Aydee Ziegler MD 04/06/2025 Telephone [facility] [address] [place] [address] Aydee Ziegler MD from Last 3 Months Family History Medical [...] Description 09/17/2025 3:20 PM EST Office Visit [facility] [address] [place] [address] Aydee Ziegler MD [address] [place] [address] Health Maintenance Due Date Last Done Comments [facility]-HIV Screening 1966 [facility]-Hepatitis C Screening 1966 [facility]-/Child/Adol SDOH Screenings 1966 [id number] Vaccine (#1) 1971 [facility]- SDOH Screenings 1984 [...] [facility]-Depression Screening 11/06/2025 11/06/2024 [facility]-Obesity Intervention Completed 025, 06/16/2024 HPV Vaccines Aged Out No longer [...] Associated Diagnosis Comments CT THORACIC OUTSIDE IMAGES 04/26/2025 10:[address] THORACIC OUTSIDE IMAGES 04/26/2025 10:29 AM EDT from Last 3 Months Results * CT THORACIC OUTSIDE IMAGES (04/26/2025 10:29 AM EDT) Only the most recent of2 resultswithin the time period is included. Anatomical Region Laterality Modality Computed Tomogra phy 04/26/2025 10:2 9 AM EDT us External Provider IMG CT PROCEDURES Final Result from Last 3 Months Insurance ANTH Advance Directives * Full Code (Latest Code Status on File) Date Activated Date Inactivated Comments 06/24/2024 8:17 PM 06/25/2024 10:17 PM Question Answer Comments Patient has decision-making capacity? Yes Care Teams Fitter'S Assistant Relationship Specialty Start Date End Date Jack Rangel MD [address] [facility] [address] [place] [address] PCP - General 06/12/24 Aydee Ziegler MD [id number] [place] [address] Surgeon Urology 06/11/24
--- OUTSIDE RECORDS SUMMARY | 2025-05-17 12:50 | XMS_ITS | Encounter Summary ---
Author Organization Healthcare Address [address] [place] [address] Care Team Providers Care Salesperson Sheet Music Name Role Phone Aydee Ziegler MD Unavailable [phone] Jack Rangel MD Primary Care Provider [phone] Encounter Details Date Type Department Care Team (Late Contact Info) Description 04/26/2025 Orders Only External Location [address] [place] [address] Provider, External Social History Tobacco Use Types [...] Department Care Team (Late Contact Info) Description 09/17/2025 3:20 PM EST Office Visit [facility] Multidisciplinary Oncology Clinic [address] [place] [address] Aydee Ziegler MD [address] [facility] [address] [place] [address] documented as of this encounter Procedures Procedure Name Priority Date/Time Associated Diagnosis Comments CT THORACIC OUTSIDE IMAGES 04/26/2025 10:29 AM EDT documented in this encounter Results * CT THORACIC OUTSIDE IMAGES (04/26/2025 10:29 AM EDT) Anatomical Region Laterality Modality Computed [...] documented as of this encounter Care Teams Salesperson Sheet Music Relationship Specialty Start Date End Date Jack Rangel MD [address] [place] [address] [address] [place] [id number] PCP - General 06/12/24 Aydee Ziegler MD [id number] [place] [address] Surgeon Urology 06/11/24 documented as of this encounter
--- OUTSIDE RECORDS SUMMARY | 2025-05-17 12:50 | XMS_ITS | Encounter Summary ---
Author Organization Healthcare Address [address] [place] [address] Care Team Providers Care Communication Specialist Name Role Phone Aydee Ziegler MD Unavailable Jack Rangel MD Primary Care Provider [phone] Encounter Details Date Type Department Care Team (Latest Contact Info) Description 05/07/2025 Travel Social History Tobacco Use Types Packs/Day [...] Office Visit [facility] [address] [place] [address] Aydee Ziegler MD [address] [facility] [address] [place] [address] documented as of this encounter Visit Diagnoses Not on filedocumented in this encounter Additional Health Concerns Assessment Noted Time A fall risk assessment has been complete d for the patient 11/06/2024 11:04 AM EST A Body Mass Index follow-up plan has been documented for the patient 05/17/2025 8:42 AM EDT documented as of this encounter Care Teams Communication Specialist Relationship Specialty Start Date End Date Jack Rangel MD [address] [facility] [address] [place] [address] PCP - General 06/12/24 Aydee Ziegler MD [address] [facility] [address] [place] [address] Surgeon Urology 06/11/24 documented as of this encounter
--- OUTSIDE RECORDS SUMMARY | 2025-05-17 12:50 | XMS_ITS | Encounter Summary ---
Author Organization [facility] Address [address] [place] [address] Care Team Providers Care Pumping Station Supervisor Name Role Phone Aydee Ziegler MD Unavailable [phone] Jack Rangel MD Primary Care Provider [phone] Encounter Details Date Type Department Care Team (Late Contact Info) Description 04/21/2024 Orders Only External Location [address] [place] [address] Jack Rangel MD [address] [place], [place] [id number] Social History Tobacco Use Types Packs/Day Years [...] 3:20 PM EST Office Visit [facility] Multidisciplinary Oncology Clinic [address] [place] [address] Aydee Ziegler MD [address] [facility] [address] [place] [address] documented as of this encounter Procedures Procedure Name Priority Date/Time Associated Diagnosis Comments MR OUTSIDE IMAGES 04/21/2024 1:14 PM EDT documented in this encounter Results * MR transfer of outside films (04/21/2024 1:14 PM EDT) Anatomical Region Laterality Modality Magnetic Resonan ce 04/21/2024 1:14 PM EDT Jack Ranegl MD IMG MRI PROCEDURES Final Resul t documented in this encounter Visit Diagnoses Not on filedocumented in this encounter Care Teams Pumping Station Supervisor Relationship Specialty Start Date End Date Jack Rangel MD [address] [facility] [address] [place] [id number] PCP - General 06/12/24 Aydee Ziegler MD [id number] [place] [address] Surgeon Urology 06/11/24 documented as of this encounter
--- OUTSIDE RECORDS SUMMARY | 2025-05-17 12:50 | XMS_ITS | Encounter Summary ---
Author Organization [facility] Address [address] [place] [address] Care Team Providers Care Seismic Survey Assistant Name Role Phone Aydee Ziegler MD Unavailable [phone] Jack Rangel MD Primary Care Provider [phone] Encounter Details Date Type Department Care Team (Late st Contact Info) Description 04/28/2024 Orders Only External Location 800 [place] [address] Provider, External Social History Tobacco Use Types [...] Description 09/17/2025 3:20 PM EST Office Visit [facility] Multidisciplinary Oncology Clinic [address] [place] [address] Aydee Ziegler MD [address] [facility] [address] [address] documented as of this encounter Procedures Procedure [...] on filedocumented in this encounter Care Teams Seismic Survey Assistant Relationship Specialty Start Date End Date Jack Rangel MD [address] [facility] [address] [place] [address] PCP - General 06/12/24 Aydee Ziegler MD [address] [facility] [address] [address] Surgeon Urology 06/11/24 documented as of this encounter
--- OUTSIDE RECORDS SUMMARY | 2025-05-17 12:50 | XMS_ITS | Encounter Summary ---
Author Organization [facility] Address [address] [place] [address] Care Team Providers Care Shirt Closer Name Role Phone Aydee Ziegler MD Unavailable [phone] Jack Rangel MD Primary Care Provider [phone] Encounter Details Date Type Department Care Team (Late st Contact Info) Description 04/06/2025 Telephone [facility] [address] [place] [address] Aydee Ziegler MD [address] [place] [address] Social History Tobacco Use Types [...] optimal time of day to reach caller: [phone] Note: Please do not reply to this [...] Office Visit [facility] [address] [place] [address] Aydee Ziegler MD [address] [address] documented as of this encounter Visit Diagnoses Not on filedocumented in this encounter Additional Health Concerns Assessment Noted Time A fall risk assessment has been complete d for the patient 11/06/2024 11:04 AM EST A Body Mass Index follow-up plan has been documented for the patient 06/25/2024 6:46 PM EDT documented as of this encounter Care Teams Shirt Closer Relationship Specialty Start Date End Date Jack Rangel MD [address] [place] [address] PCP - General 06/12/24 Aydee Ziegler MD [address] [address] Surgeon Urology 06/11/24 documented as of this encounter
--- OUTSIDE RECORDS SUMMARY | 2025-05-17 12:50 | XMS_ITS | Encounter Summary ---
Author Organization [facility] Address [address] [place] [address] Care Team Providers Care Email Production Consultant Name Role Phone Aydee Ziegler MD Unavailable [phone] Jack Rangel MD Primary Care Provider [phone] Encounter Details Date Type Department Care Team (Late Contact Info) Description 04/26/2025 Orders Only External Location [address] [place] [address] Provider, External Social History Tobacco Use Types [...] Description 09/17/2025 3:20 PM EST Office Visit [facility] Multidisciplinary Oncology Clinic [address] [place] [address] Aydee Ziegler MD [address] [facility] [address] [place] [address] documented as of this encounter Procedures Procedure [...] documented as of this encounter Care Teams Email Production Consultant Relationship Specialty Start Date End Date Jack Rangel MD [address] [place] [address] [address] [place] [id number] PCP - General 06/12/24 Aydee Ziegler MD [address] [place] [address] Surgeon Urology 06/11/24 documented as of this encounter
--- OUTSIDE RECORDS SUMMARY | 2025-05-17 12:50 | XMS_ITS | Encounter Summary ---
Author Organization [facility] Address [address] [place] [address] Care Team Providers Care Residential Sales Consultant Name Role Phone Aydee Ziegler MD Unavailable [phone] Jack Rangel MD Primary Care Provider [phone] Encounter Details Date Type Department Care Team (Late st Contact Info) Description 04/08/2025 Telephone [facility] [address] [place] [address] Aydee Ziegler MD [address] [place] [address] Social History Tobacco Use Types [...] encounter Miscellaneous Notes * Telephone Encounter - Jenana Beasley - 04/09/2025 9:53 AM EDT Per Shalini Barnhart, our auth was withdrawn so they can proceed with scan. * Telephone Encounter - Jeanna Beasley - 04/09/2025 8:48 AM EDT RN called [facility] and they stated that patient's CT CAP prior auth is incorrect. They stated that the servicing location is incorrect. It is currently [facility] and needs to be [facility]. RN send email to auth group to fix auth. * Telephone Encounter - Aleah Macias - 04/08/2025 4:24 PM EDT Patient Phone Message Reason for Call: DR. Cuadra's office is calling for the pt's prior auth for her CT scan [phone] Best contact number and optimal time of day to reach caller: Note: Please do not reply to this message. Follow-up communication and further actions as a result of this message need to be communicated with the patient directly, if the patient is not active onMyChart. If the patient is active on MyChart, they will receive notification of the communication/outcome via [employer]. documented in this encounter Plan of Treatment Upcoming Encounters Date Type Department Care Team (Late st Contact Info) Description 09/17/2025 3:20 PM EST Office Visit [facility] Multidisciplinary Oncology Clinic [address] [place] [address] Aydee Ziegler MD [id number] [place] [address] documented as of this encounter Visit Diagnoses Not on filedocumented in this encounter Additional Health Concerns Assessment Noted Time A fall risk assessment has been complete d for the patient 11/06/2024 11:04 AM EST A Body Mass Index follow-up plan has been documented for the patient 06/25/2024 6:46 PM EDT documented as of this encounter Care Teams Residential Sales Consultant Relationship Specialty Start Date End Date Jack Rangel MD [address] [facility] [address] [place] [address] PCP - General 06/12/24 Aydee Ziegler MD [address] [facility] [address] [place] [address] Surgeon Urology 06/11/24 documented as of this encounter
--- OUTSIDE RECORDS SUMMARY | 2025-05-17 12:50 | XMS_ITS | Encounter Summary ---
Author Organization [facility] Address [address] [place] [address] Care Team Providers Care Irish Moss Bleacher Name Role Phone Aydee Ziegler MD Unavailable [phone] Jack Rangel MD Primary Care Provider [phone] Encounter Details Date Type Department Care Team (Late Contact Info) Description 12/03/2023 Orders Only External Location 800 [place] [address] Jack Rangel MD [address] [place], [place] [address] Social History Tobacco Use Types Packs/Day Years [...] Description 09/17/2025 3:20 PM EST Office Visit [facility] Multidisciplinary Oncology Clinic [address] [place] [address] Aydee Ziegler MD [address] [facility] [address] [place] [address] documented as of this encounter [...] on filedocumented in this encounter Care Teams Irish Moss Bleacher Relationship Specialty Start Date End Date Jack Rangel MD [facility] [address] [place] [id number] PCP - General 06/12/24 Aydee Ziegler MD [address] [facility] [address] [place] [address] Surgeon Urology 06/11/24 documented as of this encounter
--- NOTE | 2025-05-17 13:00 | MR_ITS ---
FINAL REPORT TECHNIQUE: Multiplanar and multisequence imaging of the brain was obtained before and after contrast administration. CLINICAL HISTORY: RENAL CELL CARCINOMA recent brain fog COMPARISON: None FINDINGS: Brain parenchymal: There is no mass effect or midline shift. There are no areas of abnormal signal intensity.The cerebellum and brainstem are without acute abnormality. Ventricles: The ventricles are symmetric in size and configuration without hydrocephalus. Extra-axial spaces: No extra-axial fluid collections. Diffusion imaging: No areas of restricted diffusion to suggest acute infarct. Flow voids: Flow voids within the major intracranial vessels are preserved. Soft tissues: Soft tissues are without acute abnormality. Post contrast imaging: No abnormal enhancement. IMPRESSION: No acute intracranial abnormality and no pathologic contrast enhancement. Reviewed, Interpreted and Dictated by Charity Damon MD Transcribed by Saadia Washington Authenticated and . [facility]
[2025-05-17] MEDS: SODIUM CHLORIDE 0.9% 10ML SYR (RAD ONLY) 10 ML IV (13:31)
[2025-05-17] MEDS: GADOTERIDOL INJ 20ML SYRINGE 17 ML IV (13:31)
== END 2025-05-17 23:59 | disposition home or self-care (01) ==
LOC: RAD 12:48
PROVIDERS: PCP Internal Medicine; Visit Provider Internal Medicine Medical Oncology
DX: C64.9 Malignant neoplasm of unspecified kidney, except renal pelvis (principal)
CPT/HCPCS: 70553; A9576

== ENCOUNTER 2025-06-10 09:10 | Outpatient (CLI) | payer OTHER, SELFPAY ==
[2025-06-10 09:31] LABS: Hematocrit 40.6 % (37.0-47.0); Hemoglobin 13.2 g/dL (12.2-16.2); Immature Granulocytes % 0.4 %; Mean Corpuscular HGB Conc 32.5 g/dL (31.8-35.4); Mean Corpuscular Hemoglobin 27.4 pg (27.0-31.2); Mean Corpuscular Volume 84.2 fl (81-99); Nucleated Red Blood Cells % 0 %; Platelet Count 291 K/mm3 (142-424); Red Blood Count 4.82 M/mm3 (4.20-5.40); Red Cell Distribution Width-SD 41.5 fL; White Blood Count 6.9 K/mm3 (4.8-10.8)
[2025-06-10 09:51] LABS: Alanine Aminotransferase 23 U/L (12-78); Albumin Level 4.3 g/dl (3.5-5.0); Albumin/Globulin Ratio 1.4 (1.1-1.8); Alkaline Phosphatase 110 U/L (38-126); Anion Gap 15.2 mEq/L (5-15); Aspartate Amino Transferase 29 U/L (14-36); Bilirubin,Total 0.8 mg/dl (0.2-1.3); Blood Urea Nitrogen 25 mg/dl (7-17); Calcium 9.0 mg/dl (8.4-10.2); Carbon Dioxide 26 mmol/L (22.0-30.0); Chloride 103 mmol/L (98-107); Creatinine,Serum 1.30 mg/dl (0.52-1.04); Estimated Glomerular Filt Rate 42 ml/min (>60); GFR (African American) 51 ML/MIN (>60); Globulin 3.1 g/dL (1.3-3.2); Glucose 100 mg/dl (74-100); Potassium 4.2 mmoL/L (3.5-5.1); Sodium 140 mmol/L (136-145); Total Protein,Serum 7.4 g/dl (6.3-8.2)
[2025-06-10 10:22] LABS: Thyroid Stimulating Hormone 15.20 uIU/mL (0.465-4.68)
[2025-06-10] MEDS: SODIUM CHLORIDE 0.9% 10ML FLUSH SYRINGE 10 ML IV (10:45)
[2025-06-10] MEDS: PEMBROLIZUMAB 400 MG in 0.9 % SODIUM CHLORIDE 50 ML 132 MG IV (10:59)
[2025-06-10 11:16] VITALS: BP 144/68; PULSE 67; RESP 18; TEMP 36.4; O2SAT 99
[2025-06-10 11:50] VITALS: BP 160/87; PULSE 81
== END 2025-06-10 23:59 | disposition home or self-care (01) ==
LOC: INF 09:11
PROVIDERS: PCP Internal Medicine; Visit Provider Internal Medicine Medical Oncology
DX: C64.1 Malignant neoplasm of right kidney, except renal pelvis (principal); Z51.11 Encounter for antineoplastic chemotherapy
CPT/HCPCS: 80053; 82024; 82533; 84443; 85025; 96413; J9271

== ENCOUNTER 2025-07-13 13:30 | Outpatient (CLI) | payer OTHER, SELFPAY ==
--- NOTE | 2025-07-13 13:45 | CT_ITS ---
FINAL REPORT TECHNIQUE: Thin section axial images were obtained from the lung bases to the pubic symphysis without IV contrast. Coronal reconstruction images were obtained from the axial data. Exam was performed using dose reduction technique. CLINICAL HISTORY: renal cell carcinoma COMPARISON: 04/26/2025 FINDINGS: Unenhanced liver is fatty infiltrated. The gallbladder is present. The spleen, pancreas, and right adrenal gland are within normal limits. There is a 20 mm left adrenal nodule which is unchanged. The right kidney is surgically absent. Left kidney shows no stones or hydronephrosis. There is no evidence of small bowel obstruction. The appendix is normal. GI tract is without acute abnormality. Diverticulosis without evidence of diverticulitis. There is no abdominal or pelvic lymphadenopathy or ascites. No acute osseous abnormality is identified. IMPRESSION: Stable left adrenal nodule. Fatty liver. No abnormality or evidence of metastatic disease. Reviewed, Interpreted and Dictated by Charity Damon MD Transcribed by Clari Shah Authenticated and [facility]
--- NOTE | 2025-07-13 13:45 | CT_ITS ---
FINAL REPORT TECHNIQUE: Thin section axial images were obtained from the lung apices through the upper abdomen without contrast. This study was performed with techniques to keep radiation doses as low as reasonably achievable (ALARA). Individualized dose reduction techniques using automated exposure control or adjustment of mA and/or kV according to the patient's size were employed. CLINICAL HISTORY: renal cell carcinoma COMPARISON: 04/26/2025 FINDINGS: Bilateral axillary lymph nodes are unchanged. There are mildly prominent mediastinal lymph nodes which are stable. No hilar lymphadenopathy.. The previously seen very small left pleural effusion and pericardial effusion have resolved. The small right pleural effusion is improved. The 4 mm left upper lobe nodule on series 4 image 16 is stable. The subpleural 4 mm right middle lobe nodule on series 4 image 43 is stable. A few additional tiny nodules are also unchanged. No new pulmonary nodules identified. No consolidations.. There is no acute osseous abnormality. IMPRESSION: Stable exam of the chest. Stable subcentimeter pulmonary nodules. Reviewed, Interpreted and Dictated by Charity Damon MD Transcribed by Clari Shah Authenticated and [facility]
== END 2025-07-13 23:59 | disposition home or self-care (01) ==
LOC: RAD 13:31
PROVIDERS: PCP Internal Medicine; Visit Provider Internal Medicine Medical Oncology
DX: C64.9 Malignant neoplasm of unspecified kidney, except renal pelvis (principal); R91.8 Other nonspecific abnormal finding of lung field; K76.0 Fatty (change of) liver, not elsewhere classified; E27.8 Other specified disorders of adrenal gland
CPT/HCPCS: 71250; 74176

== ENCOUNTER 2025-07-22 08:59 | Outpatient (CLI) | payer OTHER, SELFPAY ==
--- OUTSIDE RECORDS SUMMARY | 2025-07-22 09:02 | XMS_ITS | Encounter Summary ---
Author Organization [facility] Address [address] [place] [address] Care Team Providers Care Financial Accounting Analyst Name Role Phone Aydee Ziegler MD Unavailable [phone] Jack Rangel MD Primary Care Provider Encounter Details Date Type Department Care Team (Late Contact Info) Description 04/26/2025 Orders Only External Location 800 [place] [address] Provider, External Social History Tobacco Use Types [...] Description 09/17/2025 3:20 PM EST Office Visit [facility] Multidisciplinary Oncology Clinic [address] [place] [address] Aydee Ziegler MD [address] [facility] [address] [place] [address] documented as of this encounter Procedures Procedure [...] documented as of this encounter Care Teams Financial Accounting Analyst Relationship Specialty Start Date End Date Jack Rangel MD [address] [place] [address] [address] [place] [id number] PCP - General 06/12/24 Aydee Ziegler MD [id number] [place] [address] Surgeon Urology 06/11/24 documented as of this encounter
--- OUTSIDE RECORDS SUMMARY | 2025-07-22 09:02 | XMS_ITS | Encounter Summary ---
Author Organization [facility] Address [address] [place] [address] Care Team Providers Care Chief Clinical Dietitian Name Role Phone Aydee Ziegler MD Unavailable [phone] Jack Rangel MD Primary Care Provider [phone] Encounter Details Date Type Department Care Team (Late Contact Info) Description 04/26/2025 Orders Only External Location [address] [place] [address] Provider, External Social History Tobacco Use Types [...] Description 09/17/2025 3:20 PM EST Office Visit [facility] Multidisciplinary Oncology Clinic [address] [place] [address] Aydee Ziegler MD [address] [facility] [address] [place] [address] documented as of this encounter Procedures Procedure [...] documented as of this encounter Care Teams Chief Clinical Dietitian Relationship Specialty Start Date End Date Jack Rangel MD [address] [place] [address] [address] [place] [id number] PCP - General 06/12/24 Aydee Ziegler MD [id number] [place] [address] Surgeon Urology 06/11/24 documented as of this encounter
--- OUTSIDE RECORDS SUMMARY | 2025-07-22 09:02 | XMS_ITS | Encounter Summary ---
Author Organization [facility] Address [address] [place] [address] Care Team Providers Care Highway Patrol Commander Name Role Phone Aydee Ziegler MD Unavailable [phone] Jack Rangel MD Primary Care Provider [phone] Encounter Details Date Type Department Care Team (Late Contact Info) Description 05/14/2024 Orders Only External Location [address] [place] [address] Jack Rangel MD [address] [place], [place] [address] Social History Tobacco Use Types Packs/Day Years [...] Description 09/17/2025 3:20 PM EST Office Visit [facility] Multidisciplinary Oncology Clinic [address] [place] [address] Aydee Ziegler MD [address] [facility] [address] [place] [address] documented as of this encounter [...] on filedocumented in this encounter Care Teams Highway Patrol Commander Relationship Specialty Start Date End Date Jack Rangel MD [address] [place] [address] [address] [place] [address] PCP - General 06/12/24 Aydee Ziegler MD [id number] [place] [address] Surgeon Urology 06/11/24 documented as of this encounter
[2025-07-22 09:03] VITALS: BMI 32.5
--- OUTSIDE RECORDS SUMMARY | 2025-07-22 09:03 | XMS_ITS | Clinical Summary ---
Author Organization [facility] Address [address] [place] [address] Care Team Providers Care Director Of Physical Therapy Name Role Phone Aydee Ziegler MD Unavailable [phone] Jack Rangel MD Primary Care Provider [phone] Allergies Active Allergy Reactions Criticality Noted Date Comments Ferrous Sulfate Rash Low 06/12/2024 Causes her to break out Penicillins Rash Low 06/12/2024 Causes her to break out Medications hydroCHLOROthiaz jesu 12.5 MG PO tablet Take 1 tablet (12.5 mg) by mouth daily. 08/30/2024 Active pembrolizumab (Keytruda) 100 MG/4ML injection Infuse into a venous catheter. Active Active Problems Problem Noted Date Diagnosed Date Arthritis 06/12/2024 Hypertension 06/12/2024 Renal mass 06/12/2024 Resolved Problems Problem Noted Date Diagnosed Date Resolved Date Second hand smoke exposure 06/12/2024 1 Encounters Date Type Department Care Team Description 05/07/2025 3:20 PM EDT Office Visit [facility] Multidisciplinary Oncology Clinic [address] [place] [address] Aydee Ziegler MD Renal cell carcinoma of right kidney (Primary Dx); Left adrenal mass (CMS/HCC) 05/07/2025 Travel 04/26/2025 Orders Only External Location [address] [place] [address] Provider, External 04/26/2025 Orders Only External Location [address] [place] [address] Provider, External from Last 3 Months Family [...] Office Visit [facility] [address] [place] [address] Aydee Ziegler MD [address] [facility] [address] [place] [address] Health Maintenance Due Date Last Done Comments [facility]-HIV Screening 1966 [facility]-Hepatitis C Screening 1966 [facility]-/Child/Adol SDOH Screenings 1966 [id number] Vaccine (#1) 1971 [facility]- SDOH Screenings 1984 [...] Patient has decision-making capacity? Yes Care Teams Director Of Physical Therapy Relationship Specialty Start Date End Date Jack Rangel MD [address] [facility] [address] [place] [address] PCP - General 06/12/24 Aydee Ziegler MD [address] [place] [address] Surgeon Urology 06/11/24
--- OUTSIDE RECORDS SUMMARY | 2025-07-22 09:03 | XMS_ITS | Encounter Summary ---
Author Organization [facility] Address [address] [place] [address] Care Team Providers Care Music Engineer Name Role Phone Aydee Ziegler MD Unavailable [phone] Jack Rangel MD Primary Care Provider [phone] Encounter Details Date Type Department Care Team (Late Contact Info) Description 04/21/2024 Orders Only External Location [address] [place] [address] Jack Rangel MD [address] [place], [place] [address] Social History Tobacco Use Types Packs/Day Years [...] Description 09/17/2025 3:20 PM EST Office Visit [facility] Multidisciplinary Oncology Clinic [address] [place] [address] Aydee Ziegler MD [address] [facility] [address] [place] [address] documented as of this encounter [...] on filedocumented in this encounter Care Teams Music Engineer Relationship Specialty Start Date End Date Jack Rangel MD [address] [facility] [address] [place] [id number] PCP - General 06/12/24 Aydee Ziegler MD [address] [place] [address] Surgeon Urology 06/11/24 documented as of this encounter
--- OUTSIDE RECORDS SUMMARY | 2025-07-22 09:03 | XMS_ITS | Encounter Summary ---
Author Organization [facility] Address [address] [place] [address] Care Team Providers Care Personnel Security Assistant Name Role Phone Aydee Ziegler MD Unavailable [phone] Jack Rangel MD Primary Care Provider [phone] Encounter Details Date Type Department Care Team (Late Contact Info) Description 12/03/2023 Orders Only External Location [address] [place] [address] Jack Rangel MD [address] [place], [place] [address] Social History Tobacco Use Types Packs/Day Years [...] Description 09/17/2025 3:20 PM EST Office Visit [facility] Multidisciplinary Oncology Clinic [address] [place] [address] Aydee Ziegler MD [address] [facility] [address] [place] [address] documented as of this encounter [...] on filedocumented in this encounter Care Teams Personnel Security Assistant Relationship Specialty Start Date End Date Jack Rangel MD [facility]0 [facility] [address] [place] [id number] PCP - General 06/12/24 Aydee Ziegler MD [address] [facility] [address] [place] [address] Surgeon Urology 06/11/24 documented as of this encounter
--- OUTSIDE RECORDS SUMMARY | 2025-07-22 09:03 | XMS_ITS | Encounter Summary ---
Author Organization [facility] Address [address] [place] [address] Care Team Providers Care Data Center Consultant Name Role Phone Aydee Ziegler MD Unavailable [phone] Jack Rangel MD Primary Care Provider [phone] Encounter Details Date Type Department Care Team (Late st Contact Info) Description 04/28/2024 Orders Only External Location [address] [place] [address] Provider, External Social History Tobacco Use Types [...] Description 09/17/2025 3:20 PM EST Office Visit [facility] Multidisciplinary Oncology Clinic [address] [place] [address] Aydee Ziegler MD [address] [facility] [address] [place] [address] documented as of this encounter Procedures Procedure [...] on filedocumented in this encounter Care Teams Data Center Consultant Relationship Specialty Start Date End Date Jack Rangel MD [address] [facility] [address] [place] [address] PCP - General 06/12/24 Aydee Ziegler MD [address] [facility] [address] [place] [address] Surgeon Urology 06/11/24 documented as of this encounter
[2025-07-22 09:16] LABS: Hematocrit 42.1 % (37.0-47.0); Hemoglobin 13.4 g/dL (12.2-16.2); Immature Granulocytes % 0.4 %; Mean Corpuscular HGB Conc 31.8 g/dL (31.8-35.4); Mean Corpuscular Hemoglobin 26.9 pg (27.0-31.2); Mean Corpuscular Volume 84.4 fl (81-99); Nucleated Red Blood Cells % 0 %; Platelet Count 281 K/mm3 (142-424); Red Blood Count 4.99 M/mm3 (4.20-5.40); Red Cell Distribution Width-SD 39.7 fL; White Blood Count 7.4 K/mm3 (4.8-10.8)
[2025-07-22 09:35] LABS: Alanine Aminotransferase 25 U/L (12-78); Albumin Level 4.7 g/dl (3.5-5.0); Albumin/Globulin Ratio 1.3 (1.1-1.8); Alkaline Phosphatase 92 U/L (38-126); Anion Gap 11.0 mEq/L (5-15); Aspartate Amino Transferase 27 U/L (14-36); Bilirubin,Total 0.6 mg/dl (0.2-1.3); Blood Urea Nitrogen 31 mg/dl (7-17); Calcium 9.9 mg/dl (8.4-10.2); Carbon Dioxide 27 mmol/L (22.0-30.0); Chloride 103 mmol/L (98-107); Creatinine Clearance Estimated 65 mL/min (50-200); Creatinine,Serum 1.30 mg/dl (0.52-1.04); Estimated Glomerular Filt Rate 42 ml/min (>60); GFR (African American) 51 ML/MIN (>60); Globulin 3.6 g/dL (1.3-3.2); Glucose 104 mg/dl (74-100); Potassium 4.0 mmoL/L (3.5-5.1); Sodium 137 mmol/L (136-145); Total Protein,Serum 8.3 g/dl (6.3-8.2)
[2025-07-22 10:05] LABS: Thyroid Stimulating Hormone 4.66 uIU/mL (0.465-4.68)
[2025-07-22 10:15] LABS: T4 (Thyroxine) 7.4 ug/dl (5.53-11.0)
[2025-07-22] MEDS: PEMBROLIZUMAB 400 MG in 0.9 % SODIUM CHLORIDE 50 ML 132 MG IV (10:15)
[2025-07-22 10:17] VITALS: BP 138/75; PULSE 54; RESP 18; O2SAT 99
[2025-07-22 10:55] VITALS: BP 127/65; PULSE 75; O2SAT 98
== END 2025-07-22 23:59 | disposition home or self-care (01) ==
PROVIDERS: PCP Internal Medicine; Visit Provider Internal Medicine Medical Oncology
DX: Z12.11 Encounter for screening for malignant neoplasm of colon (principal); Z51.11 Encounter for antineoplastic chemotherapy; C64.9 Malignant neoplasm of unspecified kidney, except renal pelvis
CPT/HCPCS: 80053; 82024; 82533; 84436; 84443; 85025; 96413; J9271

== ENCOUNTER 2025-09-07 08:56 | Outpatient (CLI) | payer OTHER, SELFPAY ==
[2025-09-07 08:58] VITALS: BMI 33.0
--- OUTSIDE RECORDS SUMMARY | 2025-09-07 09:03 | XMS_ITS | Encounter Summary ---
Author Organization [facility] Address [address] [place] [address] Care Team Providers Care Sampler Pickup Name Role Phone Aydee Ziegler MD Unavailable [phone] Jack Rangel MD Primary Care Provider [phone] Encounter Details Date Type Department Care Team (Late Contact Info) Description 04/26/2025 Orders Only External Location [address] [place] [address] Provider, External Social History Tobacco Use Types [...] Description 09/17/2025 3:20 PM EST Office Visit [facility] Multidisciplinary Oncology Clinic [address] [place] [address] Aydee Ziegler MD [address] [facility] [address] [place] [address] documented as of this encounter Procedures Procedure [...] documented as of this encounter Care Teams Sampler Pickup Relationship Specialty Start Date End Date Jack Rangel MD [address] [place] [address] [address] [place] [id number] PCP - General 06/12/24 Aydee Ziegler MD [id number] [place] [address] Surgeon Urology 06/11/24 documented as of this encounter
--- OUTSIDE RECORDS SUMMARY | 2025-09-07 09:03 | XMS_ITS | Encounter Summary ---
Author Organization [facility] Address [address] [place] [address] Care Team Providers Care Drug Enforcement Agent Name Role Phone Aydee Ziegler MD Unavailable [phone] Jack Rangel MD Primary Care Provider [phone] Encounter Details Date Type Department Care Team (Late Contact Info) Description 12/03/2023 Orders Only External Location [address] [place] [phone] Jack Rangel MD [address] [place], [place] [id number] Social History Tobacco Use Types Packs/Day Years [...] Description 09/17/2025 3:20 PM EST Office Visit [facility] Multidisciplinary Oncology Clinic [address] [place] [phone] Aydee Ziegler MD [address] [facility] [address] [place] [address] documented as of this encounter [...] on filedocumented in this encounter Care Teams Drug Enforcement Agent Relationship Specialty Start Date End Date Jack Rangel MD [facility] [address] [place] [id number] PCP - General 06/12/24 Aydee Ziegler MD [address] [facility] [address] [place] [address] Surgeon Urology 06/11/24 documented as of this encounter
--- OUTSIDE RECORDS SUMMARY | 2025-09-07 09:03 | XMS_ITS | Encounter Summary ---
Author Organization [facility] Address [address] [place] [address] Care Team Providers Care Back Facer Name Role Phone Aydee Ziegler MD Unavailable [phone] Jack Ragnel MD Primary Care Provider [phone] Encounter Details Date Type Department Care Team (Late Contact Info) Description 04/21/2024 Orders Only External Location [address] [place] [phone] Jack Rangel MD [address] [place], [place] [id number] Social History Tobacco Use Types Packs/Day Years [...] Office Visit [facility] Multidisciplinary Oncology Clinic [address] [place] [phone] Aydee Ziegler MD [address] [facility] [address] [place] [address] documented as of this encounter [...] on filedocumented in this encounter Care Teams Back Facer Relationship Specialty Start Date End Date Jack Rangel MD [address] [facility] [address] [place] [id number] PCP - General 06/12/24 Aydee Ziegler MD [id number] [place] [address] Surgeon Urology 06/11/24 documented as of this encounter
--- OUTSIDE RECORDS SUMMARY | 2025-09-07 09:03 | XMS_ITS | Encounter Summary ---
Author Organization [facility] Address [address] [place] [address] Care Team Providers Care Mechanical Tech Name Role Phone Aydee Ziegler MD Unavailable [phone] Jack Rangel MD Primary Care Provider Encounter Details Date Type Department Care Team (Late st Contact Info) Description 04/28/2024 Orders Only External Location [address] [place] [address] Provider, External Social History Tobacco Use Types [...] Description 09/17/2025 3:20 PM EST Office Visit [facility] Multidisciplinary Oncology Clinic [address] [place] [address] Aydee Ziegelr MD [address] [facility] [address] [place] [address] documented as of this encounter Procedures Procedure [...] on filedocumented in this encounter Care Teams Mechanical Tech Relationship Specialty Start Date End Date Jack Rangel MD [address] [facility] [address] [place] [address] PCP - General 06/12/24 Aydee Ziegler MD [address] [facility] [address] [place] [address] Surgeon Urology 06/11/24 documented as of this encounter
--- OUTSIDE RECORDS SUMMARY | 2025-09-07 09:03 | XMS_ITS | Clinical Summary ---
Author Organization [facility] Address [address] [place] [address] Care Team Providers Care Amalgamator Name Role Phone Aydee Ziegler MD Unavailable [phone] Jack Rangel MD Primary Care Provider [phone] Allergies Active Allergy Reactions Criticality Noted Date [...] Date Second hand smoke exposure 06/12/2024 1 Family History Medical History Relation Name Comments [...] Office Visit [facility] [address] [place] [address] Aydee Ziegler MD [address] [place] [address] Health Maintenance Due Date Last Done Comments [facility]-HIV Screening 1966 [facility]-Hepatitis C Screening 1966 [facility]-Infant/Child/Adol SDOH Screenings 1965 [id number] Vaccine (#1) 01/18/1967 [facility]- SDOH Screenings 1984 [facility]-Adult SDOH Screenings [...] [facility]-Obesity Intervention Completed 025, 06/16/2024 HPV Vaccines (No Doses Required) Completed [facility]-HIB Vaccines Aged Out No longer e [...] on patient's age to complete this topic Advance Directives * Full Code (Latest Code Status on File) Date Activated Date Inactivated Comments 06/24/2024 8:17 PM 06/25/2024 10:17 PM Question Answer Comments Patient has decision-making capacity? Yes Care Teams Amalgamator Relationship Specialty Start Date End Date Jack Rangel MD [address] [facility] [address] [place] [address] PCP - General 06/12/24 Aydee Ziegler MD [address] [facility] [address] [place] [address] Surgeon Urology 06/11/24
--- OUTSIDE RECORDS SUMMARY | 2025-09-07 09:03 | XMS_ITS | Encounter Summary ---
Author Organization [facility] Address [address] [place] [address] Care Team Providers Care Audio Visual Design Engineer Name Role Phone Aydee Ziegler MD Unavailable [phone] Jack Rangel MD Primary Care Provider [phone] Encounter Details Date Type Department Care Team (Late Contact Info) Description 04/26/2025 Orders Only External Location [address] [place] [address] Provider, External Social History Tobacco Use Types [...] Description 09/17/2025 3:20 PM EST Office Visit [facility] Multidisciplinary Oncology Clinic [address] [place] [address] Aydee Ziegler MD [address] [facility] [address] [place] [address] documented as of this encounter Procedures Procedure [...] documented as of this encounter Care Teams Audio Visual Design Engineer Relationship Specialty Start Date End Date Jack Rangel MD [address] [place] [address] [address] [place] [id number] PCP - General 06/12/24 Aydee Ziegler MD [id number] [place] [address] Surgeon Urology 06/11/24 documented as of this encounter
--- OUTSIDE RECORDS SUMMARY | 2025-09-07 09:03 | XMS_ITS | Encounter Summary ---
Author Organization [facility] Address [address] [place] [address] Care Team Providers Care Coal Or Ore Controller Name Role Phone Aydee Ziegler MD Unavailable [phone] Jack Rangel MD Primary Care Provider [phone] Encounter Details Date Type Department Care Team (Late Contact Info) Description 05/14/2024 Orders Only External Location [address] [place] [address] Jack Rangel MD [address] [place], [place] [id number] Social History Tobacco Use Types Packs/Day Years [...] Description 09/17/2025 3:20 PM EST Office Visit [facility] Multidisciplinary Oncology Clinic [address] [place] [phone] Aydee Ziegler MD [address] [facility] [address] [place] [address] documented as of this encounter [...] on filedocumented in this encounter Care Teams Coal Or Ore Controller Relationship Specialty Start Date End Date Jack Rangel MD [address] [place] [address] [address] [place] [address] PCP - General 06/12/24 Aydee Ziegler MD [id number] [place] [address] Surgeon Urology 06/11/24 documented as of this encounter
[2025-09-07 09:22] LABS: Hematocrit 41.4 % (37.0-47.0); Hemoglobin 13.1 g/dL (12.2-16.2); Immature Granulocytes % 0.1 %; Mean Corpuscular HGB Conc 31.6 g/dL (31.8-35.4); Mean Corpuscular Hemoglobin 26.7 pg (27.0-31.2); Mean Corpuscular Volume 84.3 fl (81-99); Nucleated Red Blood Cells % 0 %; Platelet Count 287 K/mm3 (142-424); Red Blood Count 4.91 M/mm3 (4.20-5.40); Red Cell Distribution Width-SD 40.7 fL; White Blood Count 7.3 K/mm3 (4.8-10.8)
[2025-09-07 09:31] LABS: Albumin Level 4.4 g/dl (3.5-5.0); Chloride 103 mmol/L (98-107); Potassium 4.1 mmoL/L (3.5-5.1); Sodium 139 mmol/L (136-145)
[2025-09-07 09:33] LABS: Blood Urea Nitrogen 24 mg/dl (7-17); Creatinine Clearance Estimated 57 mL/min (50-200); Creatinine,Serum 1.50 mg/dl (0.52-1.04); Estimated Glomerular Filt Rate 36 ml/min (>60)
[2025-09-07 09:34] LABS: Alanine Aminotransferase 27 U/L (12-78); Albumin/Globulin Ratio 1.3 (1.1-1.8); Alkaline Phosphatase 95 U/L (38-126); Anion Gap 13.1 mEq/L (5-15); Aspartate Amino Transferase 37 U/L (14-36); Bilirubin,Total 0.4 mg/dl (0.2-1.3); Calcium 9.3 mg/dl (8.4-10.2); Carbon Dioxide 27 mmol/L (22.0-30.0); GFR (African American) 43 ML/MIN (>60); Globulin 3.4 g/dL (1.3-3.2); Glucose 106 mg/dl (74-100); Total Protein,Serum 7.8 g/dl (6.3-8.2)
[2025-09-07 10:04] LABS: Thyroid Stimulating Hormone 9.45 uIU/mL (0.465-4.68)
[2025-09-07 10:09] VITALS: BP 152/77; PULSE 63; RESP 18; TEMP 36.4; O2SAT 98
[2025-09-07] MEDS: SODIUM CHLORIDE 0.9% 10ML FLUSH SYRINGE 10 ML IV (10:09)
[2025-09-07] MEDS: PEMBROLIZUMAB 400 MG in 0.9 % SODIUM CHLORIDE 50 ML 132 MG IV (10:09)
[2025-09-07 10:55] VITALS: BP 137/72; PULSE 51; RESP 18; O2SAT 98
== END 2025-09-07 23:59 | disposition home or self-care (01) ==
LOC: INF 08:57
PROVIDERS: PCP Internal Medicine; Visit Provider Internal Medicine Medical Oncology
DX: C64.9 Malignant neoplasm of unspecified kidney, except renal pelvis (principal); Z51.11 Encounter for antineoplastic chemotherapy
CPT/HCPCS: 80053; 82024; 82533; 84443; 85025; 96413; J9271